=== PATIENT | female | born 1940 | race Caucasian/White ===

== ENCOUNTER → 2018-11-03 12:57 | Outpatient (CLI) | payer MEDICARE, SELFPAY ==
[2018-11-03 15:53] LABS: Absolute Neutrophil Count 3.8 X10^3/uL (2.0-7.7); Basophil# 0.04 X10^3/uL; Basophil% 0.6 % (0-1); Eosinophil# 0.13 X10^3/uL; Eosinophils% 1.9 % (0-5); Hematocrit 47.3 % (37-47); Hemoglobin 14.9 g/dl (12.0-15.0); Lymphocyte % 31.4 % (19-41); Mean Corp Hgb Conc 31.5 g/gl (32-36); Mean Corpuscular Hgb 27.7 pg (27.0-32.0); Mean Corpuscular Volume 88.1 fL (81-99); Mean Platelet Vol. 10.5 fl (6.2-12.0); Monocyte# 0.57 X10^3/uL; Monocyte% 8.5 % (0-10); Neutrophil # 3.82 X10^3/uL (2.7-7.7); Neutrophil % 57.3 % (47-70); Platelet Count 318 K/mm3 (150-450); RBC Distribution Width CV 22.7 % (11.6-14.6); Red Blood Count 5.37 M/mm3 (4.2-5.4); White Blood Count 6.7 K/mm3 (4.4-11.0)
[2018-11-03 15:54] LABS: Differential Indicated SCAN CRITERIA MET; POSITIVE COUNT NO; POSITIVE DIFFERENTIAL NO; POSITIVE MORPHOLOGY YES
[2018-11-03 15:59] LABS: ALB/GLOB Ratio 1.5 RATIO (0.9-2.4); AST(SGOT) 20 U/L (15-37); Alanine Aminotransfer ALT/SGPT 31 U/L (13-56); Albumin, Serum 4.1 g/dL (3.2-5.0); Alkaline Phosphatase 65 U/L (45-117); Anion Gap 8 (5-15); BUN 28 mg/dL (7-18); BUN/Creat Ratio 35.5 RATIO (10-20); Chloride 105 mmol/L (98-107); Creatinine, Serum 0.79 mg/dL (0.55-1.02); EST Glomerular Filtration Rate 75 mL/min (>60); Est Glom Filt Rate - Afr Amer 91 mL/min (>60); Ferritin 25 ng/mL (8-252); Globulin 2.8 g/dL (2.2-4.2); Glucose 93 mg/dL (74-106); Iron 188 ug/dL (50-170); Lipase 189 U/L (73-393); Potassium 4.1 mmol/L (3.5-5.1); Protein, Total 6.9 g/dL (6.4-8.2); Sodium Level 138 mmol/L (136-145); Thyroid Stim Hormone (TSH) 1.78 uIU/mL (0.358-3.74); Vitamin B12 377 pg/mL (211-911)
[2018-11-03 16:38] LABS: Anisocytosis 1+; Differential Comment SCANNED
== END ==
PROVIDERS: Family Provider Family Medicine; PCP Family Medicine; Visit Provider Family Medicine
DX: D50.9 Iron deficiency anemia, unspecified (principal); R10.9 Unspecified abdominal pain; E87.1 Hypo-osmolality and hyponatremia; L65.9 Nonscarring hair loss, unspecified; R53.83 Other fatigue
CPT/HCPCS: 36415; 80053; 82607; 82728; 83540; 83690; 84443; 85025

== ENCOUNTER → 2018-11-18 13:23 | Outpatient (CLI) | payer MEDICARE, SELFPAY ==
--- NOTE | 2018-11-18 13:28 | BI_ITS ---
MAMMOGRAPHY - BILATERAL SCREENING REASON FOR EXAM: Female, 77 years old. Routine annual screening examination. PERTINENT HISTORY: Non-contributory. TECHNIQUE: Digital bilateral breast walter (3D mammographic acquisition) in the CC and MLO projections. 2-D mediolateral oblique (MLO) and craniocaudad (CC) views of both breasts were obtained. CAD: Full Field Digital Mammography with Computer Added Detection was performed. COMPARISON: Comparison is made with prior examination dated October 06, 2017 and September 23, 2016. FINDINGS: Breast Composition: There are scattered areas of fibroglandular density. There are no dominant masses or suspicious calcifications. Stable benign-appearing bilateral axillary lymph nodes. No other significant abnormalities are identified. There has been no significant change since the prior study. BI/SCREENING MAMM (CAD), BILAT IMPRESSION: Stable bilateral screening mammogram. Yearly follow-up mammogram recommended. (A) ASSESSMENT CATEGORY: BIRADS Category 2: Benign. A letter regarding these results will be sent to the patient by the facility within 30 days. Approximately 10% of breast cancers are not detected by mammography. A normal mammogram should not delay biopsy of a clinically suspicious abnormality. [id number] Electronically Signed: Félix Ballesteros MD at 15:03 EST , Service support ,
--- OUTSIDE RECORDS SUMMARY | 2019-01-20 12:28 | XMS RPT_ITS ---
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 Active [facility] deficiency anemia, Community unspecified / Hospital D50.9(ICD-10) Repository 11/03/2018 Unknown R10.9 - Jose Leroy Active [facility] Unspecified Community abdominal pain / Hospital R10.9(ICD-10) Repository 11/03/2018 Unknown E87.1 - Jose Leroy Active [facility] Hypo-osmolality Community and hyponatremia / Hospital E87.1(ICD-10) Repository 11/03/2018 Unknown L65.9 - Jose Leroy Active [facility] Nonscarring hair Community loss, unspecified Hospital / L65.9(ICD-10) Repository 11/03/2018 Unknown R53.83 - Other RadJose Active [facility] fatigue / Community R53.83(ICD-10) Hospital Repository PROCEDURES PROCEDURES No Procedure Records FoundRESULTS RESULTS SCREENING MAMM (CAD), Observed: 11/18/2018 Status: F Source: [facility] BILAT 1:29 PM [facility] REPOSITORY [facility] Imaging Services [address] [place] [address] SCREENING MAMM (CAD), BILAT MR#: [id number] Acct: [id number] Name: LINDEN LANDRY Rep #: [id number] : 1940 F 77 From: Félix Ballesteros MD PCP: Jose Leroy DO Status: REG CLI Study: SCREENING MAMM (CAD), BILAT Date of Exam: 11/18/18 Exam# [id number] Ordering Dr: Jose Leroy DO MAMMOGRAPHY - BILATERAL SCREENING REASON FOR EXAM: Female, 77 years old. Routine annual screening examination. PERTINENT HISTORY: Non-contributory. TECHNIQUE: Digital bilateral breast walter (3D mammographic acquisition) in the CC and MLO projections. 2-D mediolateral oblique (MLO) and craniocaudad (CC) views of both breasts were obtained. CAD: Full Field Digital Mammography with Computer Added Detection was performed. COMPARISON: Comparison is made with prior examination dated October 06, 2017 and September 23, 2016. FINDINGS: Breast Composition: There are scattered areas of fibroglandular density. There are no dominant masses or suspicious calcifications. Stable benign-appearing bilateral axillary lymph nodes. No other significant abnormalities are identified. There has been no significant change since the prior study. BI/SCREENING MAMM (CAD), BILAT IMPRESSION: Stable bilateral screening mammogram. Yearly follow-up mammogram recommended. (A) ASSESSMENT CATEGORY: BIRADS Category 2: Benign. A letter regarding these results will be sent to the patient by the facility within 30 days. Approximately 10% of breast cancers are not detected by mammography. A normal mammogram should not delay biopsy of a clinically suspicious abnormality. [id number] Electronically Signed: Félix Ballesteros MD at 15:03 EST , Service support , CC: Jose Leroy DO [employer] Operator: Signed CBC W/DIFF, AUTOMATED Collected: 11/03/2018 Status: F Source: [facility] 1:01 PM [facility] REPOSITORY TYPE CODE TESTS RESULT OUT OF RANGE REFERENCE UNITS LAB L100.1000 4.4-11.0 K/mm3 Normal WBC 6.7 LAB L100.1200 4.2-5.4 M/mm3 Normal RBC 5.37 LAB L100.1300 12.0-15.0 g/dl Normal HGB 14.9 LAB L100.1400 37-47 % High HCT 47.3 LAB L100.1500 81-99 fL Normal MCV 88.1 LAB L100.1600 27.0-32.0 pg Normal MCH 27.7 LAB L100.1700 32-36 g/gl Low MCHC 31.5 LAB L100.1810 11.6-14.6 % High RDW CV 22.7 LAB L100.1820 35.1-43.9 fl High RDW SD 71.0 LAB L100.1900 150-450 K/mm3 Normal PLT 318 LAB L100.2000 6.2-12.0 fl Normal MPV 10.5 LAB L100.2100 47-70 % Normal NEUT% 57.3 LAB L100.2200 19-41 % Normal LY% 31.4 LAB L100.2300 0-10 % Normal MONO% 8.5 LAB L100.2400 0-5 % Normal EO% 1.9 LAB L100.2500 0-1 % Normal BASO% 0.6 LAB L100.2550 0.0-0.9 % Normal IM GRAN % 0.300 Result Comment: IG% - Immature Granulocytes (promyelocytes, myelocytes and metamyelocytes) > 1% indicates that a LEFT SHIFT is Present. LAB L100.2620 2.0-7.7 X10 3/uL Normal Absolute Neut 3.8 LAB L100.2720 0.83-4.51 X10 3/ul Normal Absolute Lymph 2.10 LAB L100.4500 Normal SMEAR COMMENT SCANNED LAB L100.7300 Normal ANISO 1+ Performed By: #### L100.0100 #### [facility] [place], [address] COMPREHENSIVE METABOLIC Collected: 11/03/2018 Status: F Source: [place] M[place] 1:01 PM [facility] REPOSITORY TYPE CODE TESTS RESULT OUT OF RANGE REFERENCE UNITS LAB L501.0100 74-106 mg/dL Normal GLU 93 Result Comment: Please note revised GLUCOSE reference range effective 2017. LAB L501.1000 7-18 mg/dL High BUN 28 LAB L501.1100 0.55-1.02 mg/dL Normal CREAT,SERUM 0.79 Result Comment: The validity of the calculated GFR AND GFRAA in patients over 70 years has not been determined. Clinical correlation is essential. LAB L501.1110 >60 mL/min Normal EST GFR 75 Result Comment: Non- GFR Calc LAB L501.1115 >60 mL/min Normal EST GFR - AA 91 Result Comment: GFR Calc LAB L501.1300 10-20 RATIO High BUN/CRE 35.5 LAB L501.1500 6.4-8.2 g/dL T Normal PROT 6.9 LAB L501.1800 3.2-5.0 g/dL Normal ALB 4.1 LAB L501.1950 2.2-4.2 g/dL Normal GLOB 2.8 LAB L501.2000 0.9-2.4 RATIO Normal A/G 1.5 LAB L501.2200 8.5-10.1 mg/dL CA Normal 9.0 LAB L501.4100 15-37 U/L Normal AST 20 LAB L501.4305 45-117 U/L Normal ALK P 65 LAB L501.4405 13-56 U/L Normal ALT 31 LAB L501.4600 0.20-1.00 mg/dL T Normal BILI 0.40 LAB L501.5300 136-145 mmol/L NA Normal 138 LAB L501.5600 3.5-5.1 mmol/L K Normal 4.1 LAB L501.5900 98-107 mmol/L CL Normal 105 LAB L501.6100 21.0-32.0 mmol/L Normal CO2 25.0 LAB L501.6200 5-15 Normal GAP 8 Performed By: #### L500.4050, L501.2450, L501.9520, L503.6150, L503.6550 #### [facility] [address] [place], [address] LIPASE Collected: 11/03/2018 Status: F Source: [facility] 1:01 [facility] REPOSITORY TYPE CODE TESTS RESULT OUT OF RANGE REFERENCE UNITS LAB L501.2450 73-393 U/L Normal LIPASE 189 Performed By: #### L500.4050, L501.2450, L501.9520, L503.6150, L503.6550 #### [facility] [address] [place], [address] THYROID STIM HORMONE Collected: 11/03/2018 Status: F Source: CANONES (TSH) 1:01 [facility] REPOSITORY TYPE CODE TESTS RESULT OUT OF RANGE REFERENCE UNITS LAB L501.9520 0.358-3.74 uIU/mL Normal TSH 1.78 Performed By: #### L500.4050, L501.2450, L501.9520, L503.6150, L503.6550 #### [facility] [address] [place], [address] IRON Collected: 11/03/2018 Status: F Source: CANONES 1:01 [facility] REPOSITORY TYPE CODE TESTS RESULT OUT OF RANGE REFERENCE UNITS LAB L503.6150 50-170 ug/dL High IRON 188 Performed By: #### L500.4050, L501.2450, L501.9520, L503.6150, L503.6550 #### [facility] [address] [facility] [place], [address] FERRITIN Collected: 11/03/2018 Status: F Source: CANONES 1:01 [facility] REPOSITORY TYPE CODE TESTS RESULT OUT OF RANGE REFERENCE UNITS LAB L503.6550 8-252 ng/mL Normal FERRITIN 25 Performed By: #### L500.4050, L501.2450, L501.9520, L503.6150, L503.6550 #### [facility] [address] [facility] [place], [address] VITAMIN B12 Collected: 11/03/2018 Status: F Source: CANONES 1:01 [facility] REPOSITORY TYPE CODE TESTS RESULT OUT OF RANGE REFERENCE UNITS LAB L503.0105 211-911 pg/mL Normal Vitamin B12 377 Performed By: #### L503.0105 #### [facility] [address] [place], [address] ALLERGIES ALLERGIES No Allergies Records FoundENCOUNTERS ENCOUNTERS ADMIT/DISCHARGE ACCOUNT ADMITTING ENCOUNTER LOCATION SOURCE NUMBER CLASS 11/18/2018 [id number] [facility] ing:OPBI Repository 11/03/2018 [id number] Ambulatory [facility] 0 [facility] ing:BFHLAB Repository PAYERS PAYERS ENCOUNTER GUARANTOR PAYER SUBSCRIBER SOURCE 11/18/2018 LINDEN Aguilera Primary Insurance:MMO LINDEN BELLAMY [place] MEDICAREPolicy ROSEDOB: [facility], [facility]: [id number] [address] [id number] Repository Date:7846-11-52VS BOX ([place]) [address] [place] [phone]: 11/18/2018 Secondary NOT GIVENUNK [facility] Insurance:SELF PAY [facility] Number: Effective Repository Date:2018-09-28 11/03/2018 Lidnen Zepeda9 Primary Insurance:MMO Linden HuttonB: [id number] Number: [facility] [id number]: 330 [id number] Repository [phone] (DS) Date:[id number] [address] [place] [phone]: 11/03/2018 Secondary NOT GIVENUNK [facility] Insurance:SELF PAY [facility] Number: Effective Repository Date:2018-11-03
== END ==
PROVIDERS: Family Provider Family Medicine; PCP Family Medicine; Referring Provider Family Medicine; Visit Provider Family Medicine
DX: Z12.31 Encounter for screening mammogram for malignant neoplasm of breast (principal)
CPT/HCPCS: 77063; 77067

== ENCOUNTER → 2019-03-30 09:54 | Outpatient (CLI) | payer MEDICARE, SELFPAY ==
--- NOTE | 2019-03-30 09:55 | US_ITS ---
STUDY: THYROID ULTRASOUND REASON FOR EXAM: Female, 78 years old. Globus sensation. Hoarseness. Family history of thyroid cancer. TECHNIQUE: Ultrasound evaluation of the thyroid was performed with real-time and static robles-scale imaging. COMPARISON: None. FINDINGS: RIGHT LOBE: The right lobe of the thyroid gland measures 4.4 x 1.3 x 1.0 cm. There is a heterogeneous echotexture. Lower pole solid nodule measuring 0.6 x 0.5 x 0.4 cm LEFT LOBE: The left lobe of the thyroid gland measures 4.6 x 1.1 x 2.0 cm. There is a heterogeneous echotexture. Midpole solid nodule measuring 0.6 x 0.6 x 0.5 cm ISTHMUS: The isthmus measures 5 mm which is mildly enlarged. . The regional lymph nodes are normal. US/Thyroid IMPRESSION: Borderline thyroid gland enlargement. Single bilateral subcentimeter solid nodules. Electronically Signed: Ayush Daniels MD at 3:06 EDT , Service support ,
== END ==
PROVIDERS: Family Provider Family Medicine; PCP Family Medicine; Referring Provider Family Medicine; Visit Provider Family Medicine
DX: E04.2 Nontoxic multinodular goiter (principal); R09.89 Other specified symptoms and signs involving the circulatory and respiratory systems; R59.0 Localized enlarged lymph nodes
CPT/HCPCS: 76536

== ENCOUNTER → 2019-04-26 14:50 | Outpatient (CLI) | payer MEDICARE, SELFPAY ==
[2019-04-26 18:17] LABS: Free T3 2.4 pg/mL (2.18-3.98); T4 Free Direct 1.13 ng/dL (0.76-1.46); Thyroid Stim Hormone (TSH) 1.14 uIU/mL (0.358-3.74)
[2019-04-30 17:04] LABS: ANTINUCLEAR ANTIBODIES DIRECT Negative (Negative)
[2019-05-01 04:06] LABS: Thyroid Peroxidase AB 15 IU/mL (0-34)
[2019-05-02 16:21] LABS: T3 Reverse 26.6 ng/dL (9.2-24.1); Thyroglobulin Antibody 16.7 IU/mL (0.0-0.9)
== END ==
PROVIDERS: Family Provider Family Medicine; PCP Family Medicine; Visit Provider Family Medicine
DX: E01.0 Iodine-deficiency related diffuse (endemic) goiter (principal); H04.123 Dry eye syndrome of bilateral lacrimal glands
CPT/HCPCS: 36415; 84439; 84443; 84481; 84482; 86038; 86225; 86235; 86376; 86800

== ENCOUNTER → 2019-05-24 10:37 | Outpatient (CLI) | payer MEDICARE, SELFPAY ==
[2019-05-24 12:23] LABS: Absolute Neutrophil Count 16.6 X10^3/uL (2.0-7.7); Basophil# 0.02 X10^3/uL; Basophil% 0.1 % (0-1); Hematocrit 50.3 % (37-47); Hemoglobin 17.1 g/dL (12.0-15.0); Lymphocyte % 6.2 % (19-41); Mean Corpuscular Hgb 31.4 pg (27.0-32.0); Mean Corpuscular Volume 92.3 fL (81-99); Mean Platelet Vol. 10.1 fl (6.2-12.0); Monocyte# 1.17 X10^3/uL; Monocyte% 6.1 % (0-10); NRBC Flagged by Analyzer 0 % (0-5); Neutrophil # 16.61 X10^3/uL (2.7-7.7); Neutrophil % 86.5 % (47-70); Platelet Count 377 K/mm3 (150-450); RBC Distribution Width CV 13.6 % (11.6-14.6); Red Blood Count 5.45 M/mm3 (4.2-5.4); White Blood Count 19.2 K/mm3 (4.4-11.0)
[2019-05-24 12:28] LABS: ALB/GLOB Ratio 1.2 RATIO (0.9-2.4); AST(SGOT) 45 U/L (15-37); Alanine Aminotransfer ALT/SGPT 79 U/L (13-56); Albumin, Serum 3.8 g/dL (3.2-5.0); Alkaline Phosphatase 59 U/L (45-117); Anion Gap 14 (5-15); BUN 24 mg/dL (7-18); BUN/Creat Ratio 30.3 RATIO (10-20); Calcium,Total 9.6 mg/dL (8.5-10.1); Chloride 102 mmol/L (98-107); Creatinine, Serum 0.79 mg/dL (0.55-1.02); EST Glomerular Filtration Rate 74 mL/min (>60); Est Glom Filt Rate - Afr Amer 90 mL/min (>60); Globulin 3.2 g/dL (2.2-4.2); Glucose 192 mg/dL (74-106); Lipase 70 U/L (73-393); Potassium 3.7 mmol/L (3.5-5.1); Sodium Level 140 mmol/L (136-145)
== END ==
PROVIDERS: Family Provider Family Medicine; PCP Family Medicine; Visit Provider Family Medicine
DX: R10.13 Epigastric pain (principal)
CPT/HCPCS: 36415; 80053; 83690; 85025

== ENCOUNTER 2019-05-24 13:33 | Inpatient (IN) | payer MEDICARE, SELFPAY ==
[2019-05-24 13:34] VITALS: BP 100/75; PULSE 114; RESP 16; TEMP 36.8; O2SAT 96; BMI 26.0
--- NOTE | 2019-05-24 14:01 | CT_ITS ---
STUDY: CT ABDOMEN AND PELVIS WITH CONTRAST REASON FOR EXAM: Female, 78 years old. Upper abdominal pain. RADIATION DOSAGE (If Supplied By Facility): CTDIvol = ( 13.89 ) mGy, DLP = ( 835.82 ) mGycm TECHNIQUE: Transaxial images were obtained from the dome of the diaphragm to the symphysis pubis with oral contrast. 100ml IV/Oral Isovue 300 was administered. Sagittal and coronal images were reconstructed. Individualized dose optimization techniques were used for this CT. COMPARISON: None. FINDINGS: Increased linear markings at the lung bases slightly more prominent on the left side suggests some bibasilar scarring. The visualized portions of the heart are within normal limits. There is decreased attenuation of the liver consistent with steatosis. There are surgical clips in the gallbladder fossa consistent with a prior cholecystectomy. Normal spleen. Normal pancreas. Normal bilateral adrenal glands. Normal right kidney. Normal left kidney. There is a moderate hiatal hernia. There are dilated loops of the small intestine with a non-distended colon consistent with a small bowel obstruction. The transition point is in the distal ileum. There are multiple colonic diverticula consistent with diverticulosis. There are surgical clips in the region of the appendix consistent with a prior appendectomy. Normal abdominal aorta. Normal inferior vena cava. Normal retroperitoneum. Normal urinary bladder. There is absence of the uterus consistent with a prior hysterectomy. Small amount of free fluid is seen in the cul-de-sac. There is a 2.5 cm x 2 cm cyst in the right ovary. There is a small umbilical hernia containing fat. Grade 1 anterior listhesis of L4 on L5 with disc space narrowing at the L4-L5 level. CT/Abdomen/Pelvis WITH Contrast IMPRESSION: Findings indicative of small bowel obstruction with the transition zone in the distal ileum. Small amount of free fluid in the cul-de-sac. Sigmoid diverticulosis. Electronically Signed: Félix Ballesteros, at 16:04 EDT , Service support ,
[2019-05-24] MEDS: Ondansetron 4 MG/2 ML Vial IV (14:12)
[2019-05-24] MEDS: 0.9% Normal Saline 1,000 ML 1000 ML IV (14:12)
[2019-05-24] MEDS: fentaNYL 100 MCG/2 ML Ampul 25 MCG IV (14:13)
[2019-05-24 14:27] LABS: International Normalized Ratio 1.1
[2019-05-24 14:28] LABS: Partial Thromboplast Time 22.8 Seconds (24.1-36.2)
[2019-05-24 14:46] LABS: Lactic Acid 2.4 mmol/L (0.4-2.0)
[2019-05-24 15:34] VITALS: BP 138/73; PULSE 87; RESP 14; O2SAT 93
[2019-05-24 17:33] VITALS: BMI 25.2
[2019-05-24 17:38] VITALS: BMI 25.2
[2019-05-24 17:52] VITALS: BP 144/72; PULSE 76; RESP 17; TEMP 36.7; O2SAT 99
[2019-05-24] MEDS: 0.9% Normal Saline 1,000 ML 125 ML IV (17:59)
[2019-05-24 18:08] LABS: Reflex Lactate? Y
--- NOTE | 2019-05-24 18:45 | CON.PCM_ITS ---
Problem List (1) SBO (small bowel obstruction) Status: Acute Reason for Consult Date of Consultation: 05/24/19 Reason for Consultation: Small bowel obstruction History of Present Illness: The patient is a 78 year old F who presented to the hospital today with abdominal pain. She reports that the pain is been going on for 3 days. She says 2 days ago and yesterday she had vomiting. She has not vomited today. She says she has not passed any flatus in at least 3 days. She has not had any bowel movements. She says the pain is in her upper abdomen. Past Medical History Allergies mold Allergy (Verified 05/24/19 13:36) Unknown Home Medications: Ambulatory Orders Medication Instructions Recorded Aspirin E.C. [Ecotrin] 81 mg PO DAILY@0800 05/24/19 Ferrous Sulfate [Iron] 325 mg PO BID 05/24/19 Naproxen 500 mg PO BID PRN PRN 05/24/19 Omeprazole Magnesium [Prilosec Otc] 20 mg PO DAILY 05/24/19 traMADol [Ultram] 50 mg PO BID PRN PRN 05/24/19 Surgical History: appendectomy, cholecystectomy, hysterectomy Smoking Status: Never smoker - *Family History Maternal History Items: No pertinent history Review of Systems Constitutional: Denies: Anorexia, Chills, Fever HEENT: Denies: Difficulty Swallowing Cardiovascular: Denies: Chest Pain Respiratory: Denies: Cough, Shortness of Breath Gastrointestinal: Reports: Abdominal Pain, Nausea, Vomiting. Denies: Constipation, Diarrhea Genitourinary: Denies: Dysuria Skin: Denies: Jaundice Psychiatric: Denies: Depression Hematologic/ Lymphatic: Denies: Anemia Patient Problems: Active and Suspected Problems SBO (small bowel obstruction) (Acute) - Physical Exam General: Alert, Oriented x3, Cooperative HEENT: Atraumatic Lungs: Normal air movement Cardiovascular: Regular rate, Regular Rhythm Abdomen: Soft, Distended, Tender - Tender in the upper abdomen with no guarding or rebound Extremities: No clubbing Skin: No rashes Musculoskeletal: No Muscle Wasting Lymphatic: No Cervical, Supraclavicular, or Inguinal Adenopathy Neurological: Cranial nerves II-XII grossly intact Psych/Mental Status: Normal Affect Vital Signs Temp Pulse Resp BP Pulse Ox 98.0 F 76 17 144/72 H 99 05/24/19 17:52 05/24/19 17:52 05/24/19 17:52 05/24/19 17:52 05/24/19 17:52 Oxygen Delivery Method Room Air Weight: 125 lb Body Mass Index (BMI) 25.2 Laboratory Tests Past 24 Hrs 05/24/19 05/24/19 05/24/19 14:00 14:00 18:30 PT 14.0 INR 1.1 APTT 22.8 L Lactic Acid 2.4 H Pending Clinical Impression(s) from Imaging Studies Abdomen/Pelvis CT 05/24/19 14:01 IMPRESSION: Findings indicative of small bowel obstruction with the transition zone in the distal ileum. Small amount of free fluid in the cul-de-sac. Sigmoid diverticulosis. Electronically Signed: Félix Ballesteros, at 16:04 EDT , Service support , Assessment/Plan All Active Problems SBO (small bowel obstruction) (Acute) 78-year-old female small bowel obstruction 1. Patient reports that she had nausea and vomiting yesterday and the day before. CT scan shows a transition point in the left lower quadrant. It appears to be complete obstruction with no gas or stool in the distal small bowel or colon. The patient does have elevated white count but her abdominal exam is fairly benign with no guarding or rebound. 2. I will have the nurses place an NG tube tonight. Tomorrow morning I will obtain a KUB. If there is no improvement I will take her tomorrow for surgery. I explained this to her and she agrees. I also had the hospitalist service start Cipro and Flagyl for any translocation of gut bacteria. Ivan Palumbo MD Pager: [facility] [address] [place] [address], [address] [place] [address] Office:
--- NOTE | 2019-05-24 19:11 | ED.VISSUMM ---
- ER Visit Summary Date of Service: 05/24/19 Chief Complaint: Abdominal pain History of Present Illness: The patient is a 78 F who presents for epigastric pain. Symptoms started 3 days ago, when she woke up. They have waxed and waned, but her symptoms persisted today, so she saw her PCP. Her white count was 19 and her AST and ALT were 45 and 79, respectively. Lipase was normal. History of GERD, hiatal hernia, appendectomy, cholecystectomy, and tubal ligation. Reports nausea and decreased PO intake. Denies any other GI symptoms or symptoms. Denies fever. Physical Examination: HR 114, otherwise vitals normal. Heart regular. Lungs clear. Abdomen tender in the epigastric region. Skin normal. Alert and oriented. No acute distress. Test Results: CBC, CMP, and lipase were not repeated. PT and PTT unremarkable. Lactate was 2.4. CT showed SBO with transition point in the distal ileum. Acute hepatitis panel is pending. Emergency Department Course and Treatment: Treated with IV fluids, zofran, and fentanyl while awaiting results. Patient stable on reevaluation and discussion of her findings. Results were discussed with Dr. Palumbo and Dr. Smith. Dr. Smith will admit for further care. Treatment Plan: As above Disposition: Admit Impression: 1. Small bowel obstruction. This note was generated with [employer] dictation software. It may contain incorrect words, spelling, and punctuation that were not noted in review of the chart prior to signing ED Disposition - Plan for ED Patient: Disposition: Acute Care [facility]
[2019-05-24] MEDS: metroNIDAZOLE 500 MG/100 ML BAG 100 MG IV (19:12)
[2019-05-24 19:15] LABS: Lactic Acid 1.5 mmol/L (0.4-2.0)
[2019-05-24] MEDS: Ciprofloxacin 400 MG/200 ML BAG 200 MG IV (20:35)
[2019-05-24 21:35] VITALS: PULSE 88; RESP 16
[2019-05-24] MEDS: Oxymetazoline 0.05% 1 SPRAY SPRAY.BTL 2 SPRAY NASAL (21:43)
[2019-05-24] MEDS: Lidocaine 4% 5 ML Ampul 2 ML INHALATION (21:46)
[2019-05-24 21:56] VITALS: BP 99/54; PULSE 94; RESP 17; TEMP 37.3; O2SAT 95
--- NOTE | 2019-05-24 22:25 | RAD_ITS ---
STUDY: X-RAY - ABDOMEN/PELVIS REASON FOR EXAM: Female, 78 years old. NG tube placement. TECHNIQUE: Supine views were obtained. COMPARISON: None. FINDINGS: Nasogastric tube is coiled in the distal esophagus. Multiple dilated loops of small bowel are consistent with with small bowel obstruction. There is mild retained oral contrast in the colon from earlier CT scan. RAD/Abdomen Single View (Portable) IMPRESSION: 1. NG tube tip is coiled in the distal esophagus. This should be removed and replaced. 2. Small bowel obstruction. Oral contrast demonstrates passage into the colon since the earlier CT scan consistent with incomplete obstruction. Electronically Signed: Anisa Gayle MD at 23:56 EDT Tel , Service support ,
[2019-05-25] MEDS: 0.9% NaCl Peripheral Flush Adult/Peds IV (00:50)
--- NOTE | 2019-05-25 01:35 | RAD_ITS ---
HISTORY: NG tube placement. Single view of the lower chest and upper abdomen. Comparison study is a CT scan of the abdomen and pelvis from May 24, 2019. Findings: Esophagogastric tube is coiled within the posterior mediastinum within the hiatal hernia. Heart is not enlarged. Lungs are clear. Gaseous distention of many loops of small bowel persist. No free air is perceived. RAD/Abdomen Single View (Portable) IMPRESSION: Coiling of esophagogastric tube within the stomach within the posterior mediastinum. 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 at 0235 Reported and signed by: Amauri Day MD Electronically Signed: Amauri Day MD at 2:34 EDT Tel , Service support ,
[2019-05-25] MEDS: Lidocaine 4% 5 ML Ampul 2 ML INHALATION (02:24)
[2019-05-25] MEDS: 0.9% Normal Saline 1,000 ML 125 ML IV ×3 (03:20→20:30)
[2019-05-25 03:55] VITALS: BP 107/50; PULSE 59; RESP 16; TEMP 36.5; O2SAT 99
[2019-05-25] MEDS: metroNIDAZOLE 500 MG/100 ML BAG 100 MG IV ×3 (05:08→21:56)
--- NOTE | 2019-05-25 05:55 | RAD_ITS ---
HISTORY: Small bowel obstruction. NG tube placement. 3 images. A chest x-ray in 2 images of the abdomen. CT scan of the abdomen and pelvis was performed yesterday afternoon prior to the placement of the NG tube. That study demonstrated a moderate to large hiatal hernia. Findings: The esophagogastric tube is coiled at the gastroesophageal junction within the thorax, likely within the stomach that is herniated into the chest. Bowel gas pattern continues to demonstrate gaseous distention of bowel. CT density contrast is present within the colon, indicative of absence of a complete bowel obstruction. No free air is perceived. No pneumatosis is identified. Excreting intravascular contrast is present within the urinary bladder. Hip arthritis. Calcific plaque within the aortic arch. Left shoulder arthroplasty. RAD/Abdomen Single View (Portable) IMPRESSION: Esophagogastric tube is coiled within the posterior mediastinum, from comparison to the CT scan of the abdomen, performed earlier yesterday afternoon, the coiling of the catheter is within the stomach, but within the stomach that is herniated into the posterior mediastinum has a moderate-sized hiatal hernia. at 0214 Reported and signed by: Amauri Day MD Electronically Signed: Amauri Day MD at 2:13 EDT Tel , Service support ,
[2019-05-25 06:55] LABS: Absolute Lymphocyte Count 1.67 X10^3/uL (0.83-4.51); Absolute Neutrophil Count 7.2 X10^3/uL (2.0-7.7); Basophil# 0.03 X10^3/uL; Basophil% 0.3 % (0-1); Eosinophil# 0.01 X10^3/uL; Eosinophils% 0.1 % (0-5); Hematocrit 41.4 % (37-47); Hemoglobin 13.6 g/dL (12.0-15.0); Lymphocyte # 1.67 X10^3/ul (4.0); Lymphocyte % 16.8 % (19-41); Mean Corp Hgb Conc 32.9 g/dL (32-36); Mean Corpuscular Hgb 30.4 pg (27.0-32.0); Mean Corpuscular Volume 92.4 fL (81-99); Mean Platelet Vol. 9.5 fl (6.2-12.0); Monocyte# 0.93 X10^3/uL; Monocyte% 9.4 % (0-10); NRBC Flagged by Analyzer 0 % (0-5); Neutrophil % 72.6 % (47-70); Platelet Count 242 K/mm3 (150-450); RBC Distribution Width CV 13.5 % (11.6-14.6); Red Blood Count 4.48 M/mm3 (4.2-5.4); White Blood Count 9.9 K/mm3 (4.4-11.0)
[2019-05-25 07:28] LABS: Anion Gap 8 (5-15); BUN 13 mg/dL (7-18); BUN/Creat Ratio 25.8 RATIO (10-20); Calcium,Total 7.9 mg/dL (8.5-10.1); Chloride 109 mmol/L (98-107); EST Glomerular Filtration Rate 126 mL/min (>60); Est Glom Filt Rate - Afr Amer 152 mL/min (>60); Glucose 119 mg/dL (74-106); Potassium 3.4 mmol/L (3.5-5.1); Sodium Level 143 mmol/L (136-145)
--- NOTE | 2019-05-25 08:44 | PCM.PN.SRG ---
Patient Problems: Active and Suspected Problems SBO (small bowel obstruction) (Acute) Subjective: Patient reports she is passing flatus now. She does not have any nausea or vomiting overnight. Several attempts were tried to place NG tube but were unsuccessful due to the patient's hiatal hernia. She reports no abdominal pain this morning. - Physical Exam General: Alert, Oriented x3 Lungs: Normal air movement Cardiovascular: Regular rate, Regular Rhythm Abdomen: Soft, Non Tender, Distended Vital Signs Temp Pulse Resp BP Pulse Ox 97.7 F L 59 L 16 107/50 L 99 05/25/19 03:55 05/25/19 03:55 05/25/19 03:55 05/25/19 03:55 05/25/19 03:55 Oxygen Delivery Method Room Air Weight: 125 lb Body Mass Index (BMI) 25.2 Intake and Output for Last 24 Hours 05/23/19 05/24/19 05/25/19 23:59 23:59 23:59 Intake Total 957 / 957 620 / 620 Balance 957 / 957 620 / 620 Laboratory Tests Past 24 Hrs 05/24/19 05/24/19 05/24/19 14:00 14:00 18:30 WBC RBC Hgb Hct MCV MCH MCHC RDW Std Deviation RDW Coeff of Nick Plt Count MPV Immature Gran % (Auto) Neut % (Auto) Lymph % (Auto) [place] % (Auto) Eos % (Auto) Baso % (Auto) Absolute Neuts (auto) Absolute Lymphs (auto) Nucleated RBC % PT 14.0 INR 1.1 APTT 22.8 L Sodium Potassium Chloride Carbon Dioxide Anion Gap BUN Creatinine Estim Creat Clear Calc Est GFR (MDRD) Af Amer Est GFR (MDRD) Non-Af BUN/Creatinine Ratio Glucose Lactic Acid 2.4 H 1.5 Calcium 05/25/19 05/25/19 06:33 06:33 WBC 9.9 RBC 4.48 Hgb 13.6 Hct 41.4 MCV 92.4 MCH 30.4 MCHC 32.9 RDW Std Deviation 46.0 H RDW Coeff of Nick 13.5 Plt Count 242 MPV 9.5 Immature Gran % (Auto) 0.800 Neut % (Auto) 72.6 H Lymph % (Auto) 16.8 L [place] % (Auto) 9.4 Eos % (Auto) 0.1 Baso % (Auto) 0.3 Absolute Neuts (auto) 7.2 Absolute Lymphs (auto) 1.67 Nucleated RBC % 0 PT INR APTT Sodium 143 Potassium 3.4 L Chloride 109 H Carbon Dioxide 26.0 Anion Gap 8 BUN 13 Creatinine 0.50 L Estim Creat Clear Calc 41.50 Est GFR (MDRD) Af Amer 152 Est GFR (MDRD) Non-Af 126 BUN/Creatinine Ratio 25.8 H Glucose 119 H Lactic Acid Calcium 7.9 L Medical Necessity - Tobacco Use Smoking Status: Never smoker Assessment/Plan All Active Problems SBO (small bowel obstruction) (Acute) 78-year-old female with small bowel obstruction 1. Patient's contrast on her CT is now in the colon. She still has markedly dilated small bowel loops. She is not having any nausea vomiting or abdominal pain and her white count has returned to normal. I recommend continuing to observe today. I will repeat KUB in the morning. If there is no progression I can always take her to surgery tomorrow. Today she would agree in observation as her pain is gone and she is starting to pass gas. If there is progression I will start a diet tomorrow. Today there is still too many dilated small bowel loops. Ivan Palumbo MD Pager: [facility] [address] [place] [address], [address] [place] [address] Office:
[2019-05-25 09:09] LABS: Magnesium 1.9 mg/dL (1.6-2.6); Phosphorus 2.1 mg/dL (2.5-4.9); Thyroid Stim Hormone (TSH) 0.99 uIU/mL (0.358-3.74)
--- NOTE | 2019-05-25 09:50 | CASEMGMT ---
RN CM Note Presentation: SBO Intro role of CM to patient in room. She is awake, alert and able to participate in assessment. Demographics, PCP and Pharmacy verified. PCP: Dr. Jose Leroy. Pt states she is able to f/u with physicians on discharge. Specialist: Dr. Kay Pharmacy: [facility] Prescription Coverage: yes Living arrangements/DME: Lives independently. No assist needed with ADL's. States she does not use or have DME equipment. If any assist is needed on dc, pt states her son and daughter in law live nearby and can assist. Pt DC Goal: Home DC Plan: Home Virgil KELLY RN ACM
[2019-05-25 09:55] VITALS: BP 102/53; PULSE 64; RESP 16; TEMP 36.9; O2SAT 98
[2019-05-25] MEDS: Ciprofloxacin 400 MG/200 ML BAG 200 MG IV ×2 (10:42→23:11)
[2019-05-25] MEDS: Potassium Chloride 10mEq/100mL 10 MEQ/100 ML IV.SOLN. 100 MEQ IV BOLUS ×4 (11:36→15:19)
--- NOTE | 2019-05-25 12:25 | PCM.PROGNOTE ---
<Christopher Donnelly - Last Filed: 05/25/19 12:25> Patient Problems: Active and Suspected Problems SBO (small bowel obstruction) (Acute) Subjective: Denies any nausea/vomiting/abdominal pain. States she had another BM that was small and soft last night after admission. She wants to eat. NG failed as it went into the hiatal hernia. Currently + flatus. No fever/chills. - Physical Exam General: Alert, Oriented x3, Cooperative HEENT: Atraumatic, PERRLA, EOMI, Normocephalic Neck: Supple, No JVD, Negative Carotid Bruits Lungs: Clear to auscultation, Normal air movement Cardiovascular: Regular rate, No murmurs Abdomen: Bowel Sounds Present, Soft, Non Tender Extremities: No edema, Capillary Refill Less than 3 Seconds Skin: No rashes, No breakdown Musculoskeletal: No Tenderness to Palpation of Joints or Extremities Neurological: Cranial nerves II-XII grossly intact Psych/Mental Status: Normal Affect, Appropriate, Alert and oriented to time, place, person, mood and affect Vital Signs Temp Pulse Resp BP Pulse Ox 98.4 F 64 16 102/53 L 98 05/25/19 09:55 05/25/19 09:55 05/25/19 09:55 05/25/19 09:55 05/25/19 09:55 Oxygen Delivery Method Room Air Weight: 124 lb 12.506 oz Body Mass Index (BMI) 25.2 Intake and Output for Last 24 Hours 05/23/19 05/24/19 05/25/19 23:59 23:59 23:59 Intake Total 957 / 957 620 / 620 Balance 957 / 957 620 / 620 Laboratory Tests Past 24 Hrs 05/24/19 05/24/19 05/24/19 14:00 14:00 18:30 WBC RBC Hgb Hct MCV MCH MCHC RDW Std Deviation RDW Coeff of Nick Plt Count MPV Immature Gran % (Auto) Neut % (Auto) Lymph % (Auto) [place] % (Auto) Eos % (Auto) Baso % (Auto) Absolute Neuts (auto) Absolute Lymphs (auto) Nucleated RBC % PT 14.0 INR 1.1 APTT 22.8 L Sodium Potassium Chloride Carbon Dioxide Anion Gap BUN Creatinine Estim Creat Clear Calc Est GFR (MDRD) Af Amer Est GFR (MDRD) Non-Af BUN/Creatinine Ratio Glucose Lactic Acid 2.4 H 1.5 Calcium Phosphorus Magnesium TSH 05/25/19 05/25/19 05/25/19 06:33 06:33 06:33 WBC 9.9 RBC 4.48 Hgb 13.6 Hct 41.4 MCV 92.4 MCH 30.4 MCHC 32.9 RDW Std Deviation 46.0 H RDW Coeff of Nick 13.5 Plt Count 242 MPV 9.5 Immature Gran % (Auto) 0.800 Neut % (Auto) 72.6 H Lymph % (Auto) 16.8 L [place] % (Auto) 9.4 Eos % (Auto) 0.1 Baso % (Auto) 0.3 Absolute Neuts (auto) 7.2 Absolute Lymphs (auto) 1.67 Nucleated RBC % 0 PT INR APTT Sodium 143 Potassium 3.4 L Chloride 109 H Carbon Dioxide 26.0 Anion Gap 8 BUN 13 Creatinine 0.50 L Estim Creat Clear Calc 41.50 Est GFR (MDRD) Af Amer 152 Est GFR (MDRD) Non-Af 126 BUN/Creatinine Ratio 25.8 H Glucose 119 H Lactic Acid Calcium 7.9 L Phosphorus 2.1 L Magnesium 1.9 TSH 0.99 Medical Necessity - Tobacco Use Smoking Status: Never smoker Assessment/Plan All Active Problems SBO (small bowel obstruction) (Acute) 1. SBO - multiple prior abdominal surgeries. + BMs last night. + flatus. No abd pain, tenderness, N/V today. Dr. Palumbo following. NG failed but she appears to be doing fine without it. Cipro/Flagyl per surgery. 2. Hx GERD/Hiatal hernia - continue IV PPI 3. Hashimotos dz - TSH normal 4. Low K, Mag - replete 5. Osteoarthritis - pain controlled DVT ppx: SCDs DC planning: advance diet per gen surgery This patient was seen by Christopher Donnelly PA-C under the supervision of Doctor Prudencio. <Tyler Flannery - Last Filed: 05/25/19 12:53> - Physical Exam Vital Signs Temp Pulse Resp BP Pulse Ox 98.4 F 64 16 102/53 L 98 05/25/19 09:55 05/25/19 09:55 05/25/19 09:55 05/25/19 09:55 05/25/19 09:55 Oxygen Delivery Method Room Air Weight: 56.6 kg Body Mass Index (BMI) 25.2 Intake and Output for Last 24 Hours 05/23/19 05/24/19 05/25/19 23:59 23:59 23:59 Intake Total 957 / 957 620 / 620 Balance 957 / 957 620 / 620 Laboratory Tests Past 24 Hrs 05/24/19 05/24/19 05/24/19 14:00 14:00 18:30 WBC RBC Hgb Hct MCV MCH MCHC RDW Std Deviation RDW Coeff of Nick Plt Count MPV Immature Gran % (Auto) Neut % (Auto) Lymph % (Auto) [place] % (Auto) Eos % (Auto) Baso % (Auto) Absolute Neuts (auto) Absolute Lymphs (auto) Nucleated RBC % PT 14.0 INR 1.1 APTT 22.8 L Sodium Potassium Chloride Carbon Dioxide Anion Gap BUN Creatinine Estim Creat Clear Calc Est GFR (MDRD) Af Amer Est GFR (MDRD) Non-Af BUN/Creatinine Ratio Glucose Lactic Acid 2.4 H 1.5 Calcium Phosphorus Magnesium TSH 05/25/19 05/25/19 05/25/19 06:33 06:33 06:33 WBC 9.9 RBC 4.48 Hgb 13.6 Hct 41.4 MCV 92.4 MCH 30.4 MCHC 32.9 RDW Std Deviation 46.0 H RDW Coeff of Nick 13.5 Plt Count 242 MPV 9.5 Immature Gran % (Auto) 0.800 Neut % (Auto) 72.6 H Lymph % (Auto) 16.8 L [place] % (Auto) 9.4 Eos % (Auto) 0.1 Baso % (Auto) 0.3 Absolute Neuts (auto) 7.2 Absolute Lymphs (auto) 1.67 Nucleated RBC % 0 PT INR APTT Sodium 143 Potassium 3.4 L Chloride 109 H Carbon Dioxide 26.0 Anion Gap 8 BUN 13 Creatinine 0.50 L Estim Creat Clear Calc 41.50 Est GFR (MDRD) Af Amer 152 Est GFR (MDRD) Non-Af 126 BUN/Creatinine Ratio 25.8 H Glucose 119 H Lactic Acid Calcium 7.9 L Phosphorus 2.1 L Magnesium 1.9 TSH 0.99 Assessment/Plan This patient was seen in conjunction with Christopher Medrano I have independently interviewed and examined the patient and reviewed pertinent historical, laboratory, and other data. Please refer to Christopher Donnelly PA-C note for details of this patient's presentation, findings, and recommendations. I have reviewed Christopher Donnelly PA-C note and concur with documented findings. In brief, patient is a 78-year-old lady with multiple abdominal surgeries including hysterectomy, appendectomy, cholecystectomy who presented with abdominal pain. Her assessment was consistent with small bowel obstruction admitted to regular nursing floor for further management Physical Examination: GENERAL: cooperative HEENT: Atraumatic; EYES; Anicteric, NECK; supple, normal thyroid, RESPIRATORY: Diminished to auscultation CARDIOVASCULAR: Regular S1 S2,s GI: soft, non-tender, normoactive bowel sounds, : No Renal angle tenderness; NEURO: Awake; no lateralizing signs. SKIN: No Rash PSYCH; Normal affect Assessment: 1. Small bowel obstruction suspected to be secondary to adhesions 2. Hiatal hernia with GERD 3. Hypomagnesemia 4. Hypokalemia 5. Generalized osteoarthritis Recommendations: 1. I have discussed the results of my overview and impressions with the patient 2. Options for management were reviewed Code Visit Inpatient E&M: 74091 Subs Hosp L3
[2019-05-25 16:51] VITALS: BP 109/69; PULSE 67; RESP 18; TEMP 36.6; O2SAT 97
[2019-05-25] MEDS: Calcium Carbonate 500 MG Tablet 1000 MG PO (18:05)
[2019-05-25 20:33] VITALS: BP 124/50; PULSE 60; RESP 18; TEMP 36.9; O2SAT 97
[2019-05-26 03:34] VITALS: BP 116/43; PULSE 61; RESP 16; TEMP 37; O2SAT 99
[2019-05-26] MEDS: metroNIDAZOLE 500 MG/100 ML BAG 100 MG IV ×3 (05:34→23:15)
--- NOTE | 2019-05-26 05:55 | RAD_ITS ---
HISTORY: Small bowel obstruction. Comparison chest x-ray is from yesterday morning. Comparison single view of the abdomen is from yesterday morning. Findings: Oral contrast, likely from the CT scan of May 24, 2019 is within the rectum and colon. There are abnormally dilated loops of small bowel within the abdomen. The most dilated of these is dilated to 3.8 cm in the left hemiabdomen. There does appear to be some small bowel wall thickening inferiorly. The degree of small bowel distention is less than that of the previous study. 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 RAD/Abdomen Single View (Portable) IMPRESSION: Absence of a complete bowel obstruction. The ingested oral contrast from the May 24, 2019 CT scan now resides on this entirely within the colon and into the rectum. Persistently dilated loops of small bowel centrally within the abdomen. This largest loop is dilated to 3.8 cm. There may be some minimal bowel wall thickening to the small bowel. The number of loops of small bowel that are gaseously distended and dilated has decreased since the previous study. at 0528 Reported and signed by: Amauri Day MD Electronically Signed: Amauri Day MD at 5:27 EDT Tel , Service support ,
[2019-05-26 06:10] LABS: Absolute Lymphocyte Count 1.13 X10^3/uL (0.83-4.51); Absolute Neutrophil Count 4.3 X10^3/uL (2.0-7.7); Basophil# 0.02 X10^3/uL; Basophil% 0.3 % (0-1); Eosinophil# 0.03 X10^3/uL; Eosinophils% 0.5 % (0-5); Hematocrit 41.4 % (37-47); Hemoglobin 13.7 g/dL (12.0-15.0); Lymphocyte # 1.13 X10^3/ul (4.0); Lymphocyte % 18.4 % (19-41); Mean Corp Hgb Conc 33.1 g/dL (32-36); Mean Corpuscular Hgb 31.4 pg (27.0-32.0); Mean Corpuscular Volume 94.7 fL (81-99); Mean Platelet Vol. 9.6 fl (6.2-12.0); Monocyte% 9.8 % (0-10); NRBC Flagged by Analyzer 0 % (0-5); Neutrophil # 4.33 X10^3/uL (2.7-7.7); Neutrophil % 70.3 % (47-70); Platelet Count 243 K/mm3 (150-450); RBC Distribution Width CV 13.2 % (11.6-14.6); Red Blood Count 4.37 M/mm3 (4.2-5.4); White Blood Count 6.2 K/mm3 (4.4-11.0)
[2019-05-26 06:32] LABS: Anion Gap 11 (5-15); BUN 8 mg/dL (7-18); BUN/Creat Ratio 16.9 RATIO (10-20); Calcium,Total 8.1 mg/dL (8.5-10.1); Chloride 109 mmol/L (98-107); Creatinine, Serum 0.47 mg/dL (0.55-1.02); EST Glomerular Filtration Rate 135 mL/min (>60); Est Glom Filt Rate - Afr Amer 164 mL/min (>60); Estimated Creatinine Clearance 41.43 ml/min; Glucose 118 mg/dL (74-106); Potassium 3.1 mmol/L (3.5-5.1); Sodium Level 140 mmol/L (136-145)
[2019-05-26] MEDS: 0.9% Normal Saline 1,000 ML 125 ML IV ×2 (07:26→23:15)
--- NOTE | 2019-05-26 07:59 | PN_ITS ---
Patient Problems: Active and Suspected Problems SBO (small bowel obstruction) (Acute) Subjective: In brief, patient is a 78-year-old lady with multiple abdominal surgeries including hysterectomy, appendectomy, cholecystectomy who presented with abdominal pain. Her assessment was consistent with small bowel obstruction admitted to regular nursing floor for further management 05/26/2019; patient had a tiny bowel movement this a.m. Also admits to passing a lot of gas. Seen by general surgery plan is for patient to be started on clear liquid with plans to advance as tolerated Objective: GENERAL: cooperative HEENT: Atraumatic; EYES; Anicteric, NECK; supple, normal thyroid, RESPIRATORY: Diminished to auscultation CARDIOVASCULAR: Regular S1 S2,s GI: soft, non-tender, normoactive bowel sounds, : No Renal angle tenderness; NEURO: Awake; no lateralizing signs. SKIN: No Rash PSYCH; Normal affect Vitals/I&O's: Vital Signs Temp Pulse Resp BP Pulse Ox 98.6 F 61 16 116/43 L 99 05/26/19 03:34 05/26/19 03:34 05/26/19 03:34 05/26/19 03:34 05/26/19 03:34 Oxygen Delivery Method Room Air Weight: 56.6 kg Body Mass Index (BMI) 25.2 Intake and Output for Last 24 Hours 05/24/19 05/25/19 05/26/19 23:59 23:59 23:59 Intake Total 957 / 957 2923 / 2923 1011 / 1011 Output Total 1000 / 1000 Balance 957 / 957 2923 / 2923 Laboratory Results 05/25/19 06:33: Phosphorus 2.1 L, Magnesium 1.9, TSH 0.99 05/26/19 05:44: WBC 6.2, RBC 4.37, Hgb 13.7, Hct 41.4, MCV 94.7, MCH 31.4, MCHC 33.1, RDW Std Deviation 46.0 H, RDW Coeff of Nick 13.2, Plt Count 243, MPV 9.6, Immature Gran % (Auto) 0.700, Neut % (Auto) 70.3 H, Lymph % (Auto) 18.4 L, [place] % (Auto) 9.8, Eos % (Auto) 0.5, Baso % (Auto) 0.3, Absolute Neuts (auto) 4.3, Absolute Lymphs (auto) 1.13, Nucleated RBC % 0 05/26/19 05:44: Sodium 140, Potassium 3.1 L, Chloride 109 H, Carbon Dioxide 20.0 L, Anion Gap 11, BUN 8, Creatinine 0.47 L, Estim Creat Clear Calc 41.43, Est GFR (MDRD) Af Amer 164, Est GFR (MDRD) Non-Af 135, BUN/Creatinine Ratio 16.9, Glucose 118 H, Calcium 8.1 L Current Medications Calcium Carbonate (Tums) 1,000 mg PO Q6H PRN PRN PRN Reason: DYSPEPSIA Last Admin: 05/25/19 18:05 Dose: 1,000 mg Documented by: Sodium Chloride () 1,000 mls @ 125 mls/hr IV .Q8H [facility] Last Admin: 05/26/19 07:26 Dose: 125 mls/hr Documented by: Pantoprazole Sodium 40 mg/ (Sodium Chloride) 110 mls @ 330 mls/hr IV Q24 [facility] Last Admin: 05/25/19 10:42 Dose: 330 mls/hr Documented by: Ciprofloxacin (Cipro) 400 mg in 200 mls @ 200 mls/hr IV Q12 [facility] Last Admin: 05/25/19 23:11 Dose: 200 mls/hr Documented by: Metronidazole (Flagyl) 500 mg in 100 mls @ 100 mls/hr IV Q8 [facility] Last Admin: 05/26/19 05:34 Dose: 100 mls/hr Documented by: Morphine Sulfate () 2 mg IV Q3H PRN PRN PRN Reason: SEVERE PAIN (6-10/10) Ondansetron HCl (Zofran) 4 mg IV Q6H PRN PRN PRN Reason: NAUSEA Potassium Chloride (K-Dur) 20 meq PO BIDCM [facility] Promethazine HCl (Phenergan) 6.25 mg IV Q6H PRN PRN PRN Reason: NAUSEA/VOMITING Sodium Chloride () 10 - 40 ml IV UD PRN PRN Reason: SALINE FLUSH Last Admin: 05/25/19 00:50 Dose: 10 ml Documented by: Medical Necessity - Tobacco Use Smoking Status: Never smoker Assessment/Plan All Active Problems SBO (small bowel obstruction) (Acute) T In brief, patient is a 78-year-old lady with multiple abdominal surgeries including hysterectomy, appendectomy, cholecystectomy who presented with abdominal pain. Her assessment was consistent with small bowel obstruction admitted to regular nursing floor for further management 1. Small bowel obstruction suspected to be secondary to adhesions: Patient was managed conservatively had return of bowel function , started on clear liquid which is being advanced as tolerated patient was seen in consultation by Dr. Palumbo with general surgery 2. Hiatal hernia with GERD; on PPI 3. Hypomagnesemia; Corrected per protocol 4. Hypokalemia: Corrected per protocol 5. Generalized osteoarthritis Active Medications Calcium Carbonate (Tums) 1,000 mg PO Q6H PRN PRN PRN Reason: DYSPEPSIA Last Admin: 05/25/19 18:05 Dose: 1,000 mg Documented by: Sodium Chloride () 1,000 mls @ 125 mls/hr IV .Q8H [facility] Last Admin: 05/26/19 07:26 Dose: 125 mls/hr Documented by: Pantoprazole Sodium 40 mg/ (Sodium Chloride) 110 mls @ 330 mls/hr IV Q24 [facility] Last Admin: 05/25/19 10:42 Dose: 330 mls/hr Documented by: Ciprofloxacin (Cipro) 400 mg in 200 mls @ 200 mls/hr IV Q12 [facility] Last Admin: 05/25/19 23:11 Dose: 200 mls/hr Documented by: Metronidazole (Flagyl) 500 mg in 100 mls @ 100 mls/hr IV Q8 [facility] Last Admin: 05/26/19 05:34 Dose: 100 mls/hr Documented by: Morphine Sulfate () 2 mg IV Q3H PRN PRN PRN Reason: SEVERE PAIN (6-10/10) Ondansetron HCl (Zofran) 4 mg IV Q6H PRN PRN PRN Reason: NAUSEA Potassium Chloride (K-Dur) 20 meq PO BIDCM [facility] Promethazine HCl (Phenergan) 6.25 mg IV Q6H PRN PRN PRN Reason: NAUSEA/VOMITING Sodium Chloride () 10 - 40 ml IV UD PRN PRN Reason: SALINE FLUSH Last Admin: 05/25/19 00:50 Dose: 10 ml Documented by: Clinical Impression(s) from Imaging Studies Abdomen/Pelvis CT 05/24/19 14:01 IMPRESSION: Findings indicative of small bowel obstruction with the transition zone in the distal ileum. Small amount of free fluid in the cul-de-sac. Sigmoid diverticulosis. Electronically Signed: Félix Ballesteros, at 16:04 EDT , Service support , KUB X-Ray 05/24/19 22:25 IMPRESSION: 1. NG tube tip is coiled in the distal esophagus. This should be removed and replaced. 2. Small bowel obstruction. Oral contrast demonstrates passage into the colon since the earlier CT scan consistent with incomplete obstruction. Electronically Signed: Anisa Gayle MD at 23:56 EDT Tel , Service support , KUB X-Ray 05/25/19 01:35 IMPRESSION: Coiling of esophagogastric tube within the stomach within the posterior mediastinum. 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 at 0235 Reported and signed by: Amauri Day MD Electronically Signed: Amauri Day MD at 2:34 EDT Tel , Service support , KUB X-Ray 05/25/19 05:55 IMPRESSION: Esophagogastric tube is coiled within the posterior mediastinum, from comparison to the CT scan of the abdomen, performed earlier yesterday afternoon, the coiling of the catheter is within the stomach, but within the stomach that is herniated into the posterior mediastinum has a moderate-sized hiatal hernia. at 0214 Reported and signed by: Amauri Day MD Electronically Signed: Amauri Day MD at 2:13 EDT Tel , Service support , KUB X-Ray 05/26/19 05:55 IMPRESSION: Absence of a complete bowel obstruction. The ingested oral contrast from the May 24, 2019 CT scan now resides on this entirely within the colon and into the rectum. Persistently dilated loops of small bowel centrally within the abdomen. This largest loop is dilated to 3.8 cm. There may be some minimal bowel wall thickening to the small bowel. The number of loops of small bowel that are gaseously distended and dilated has decreased since the previous study. at 0528 Reported and signed by: Amauri Day MD Electronically Signed: Amauri Day MD at 5:27 EDT Tel , Service support , Code Visit Inpatient E&M: 11594 Subs Hosp L2
[2019-05-26 08:30] VITALS: BP 122/67; PULSE 74; RESP 18; TEMP 36.5; O2SAT 98
--- NOTE | 2019-05-26 09:12 | PCM.PN.SRG ---
Patient Problems: Active and Suspected Problems SBO (small bowel obstruction) (Acute) Subjective: Patient notes that she is passing flatus and having no abdominal pain. - Physical Exam General: Alert, Oriented x3 Lungs: Normal air movement Cardiovascular: Regular rate, Regular Rhythm Abdomen: Soft, Non Tender, Non-Distended Vital Signs Temp Pulse Resp BP Pulse Ox 97.7 F L 74 18 122/67 H 98 05/26/19 08:30 05/26/19 08:30 05/26/19 08:30 05/26/19 08:30 05/26/19 08:30 Oxygen Delivery Method Room Air Weight: 124 lb 12.506 oz Body Mass Index (BMI) 25.2 Intake and Output for Last 24 Hours 05/24/19 05/25/19 05/26/19 23:59 23:59 23:59 Intake Total 957 / 957 2923 / 2923 1011 / 1011 Output Total 1000 / 1000 Balance 957 / 957 2923 / 2923 Laboratory Tests Past 24 Hrs 05/26/19 05/26/19 05:44 05:44 WBC 6.2 RBC 4.37 Hgb 13.7 Hct 41.4 MCV 94.7 MCH 31.4 MCHC 33.1 RDW Std Deviation 46.0 H RDW Coeff of Nick 13.2 Plt Count 243 MPV 9.6 Immature Gran % (Auto) 0.700 Neut % (Auto) 70.3 H Lymph % (Auto) 18.4 L [place] % (Auto) 9.8 Eos % (Auto) 0.5 Baso % (Auto) 0.3 Absolute Neuts (auto) 4.3 Absolute Lymphs (auto) 1.13 Nucleated RBC % 0 Sodium 140 Potassium 3.1 L Chloride 109 H Carbon Dioxide 20.0 L Anion Gap 11 BUN 8 Creatinine 0.47 L Estim Creat Clear Calc 41.43 Est GFR (MDRD) Af Amer 164 Est GFR (MDRD) Non-Af 135 BUN/Creatinine Ratio 16.9 Glucose 118 H Calcium 8.1 L Medical Necessity - Tobacco Use Smoking Status: Never smoker Assessment/Plan All Active Problems SBO (small bowel obstruction) (Acute) 78-year-old female with resolving small bowel obstruction 1. Patient is doing well this morning. She has no abdominal pain. She is passing flatus. Her KUB shows contrast in the colon with decreasing small bowel distention. I will try her on a liquid diet and see how she does. If things get worse she may still need surgery but I believe her bowel obstruction is resolving conservatively. Ivan Palumbo MD Pager: [facility] [address] [place] [address], [address] [place] [address] Office:
[2019-05-26] MEDS: Ciprofloxacin 400 MG/200 ML BAG 200 MG IV ×2 (09:29→22:04)
[2019-05-26] MEDS: Enoxaparin 40 MG/0.4 ML Syringe SC (09:31)
[2019-05-26 14:45] VITALS: BP 129/62; PULSE 60; RESP 18; TEMP 36.6; O2SAT 98
[2019-05-26] MEDS: traMADol 50 MG Tablet PO (16:00)
[2019-05-26] MEDS: Ferrous Sulfate 325 MG Tablet PO (16:00)
[2019-05-26 20:11] VITALS: BP 125/61; PULSE 68; RESP 16; TEMP 36.6; O2SAT 97
[2019-05-27 03:17] VITALS: BP 117/61; PULSE 62; RESP 16; TEMP 37; O2SAT 97
[2019-05-27] MEDS: Enoxaparin 40 MG/0.4 ML Syringe SC (05:44)
[2019-05-27] MEDS: metroNIDAZOLE 500 MG/100 ML BAG 100 MG IV (05:44)
--- NOTE | 2019-05-27 07:11 | PCM.PN.SRG ---
Patient Problems: Active and Suspected Problems SBO (small bowel obstruction) (Acute) Subjective: Patient tolerating full liquids with no nausea or vomiting or abdominal pain. She reports passing flatus and a small bowel movement yesterday. She feels well and would like to try regular diet. - Physical Exam General: Alert, Oriented x3 Lungs: Normal air movement Abdomen: Soft, Non Tender, Non-Distended Vital Signs Temp Pulse Resp BP Pulse Ox 98.6 F 62 16 117/61 97 05/27/19 03:17 05/27/19 03:17 05/27/19 03:17 05/27/19 03:17 05/27/19 03:17 Oxygen Delivery Method Room Air Weight: 124 lb 12.506 oz Body Mass Index (BMI) 25.2 Intake and Output for Last 24 Hours 05/25/19 05/26/19 05/27/19 23:59 23:59 23:59 Intake Total 2923 / 2923 3598 / 3598 1084 / 1084 Output Total 3700 / 3700 900 / 900 Balance 2923 / 2923 -102 / -102 184 / 184 Medical Necessity - Tobacco Use Smoking Status: Never smoker Assessment/Plan All Active Problems SBO (small bowel obstruction) (Acute) 78-year-old female with resolving small bowel obstruction 1. Patient appears to be doing well today. She is passing flatus and had a small bowel movement yesterday. She tolerated full liquids well with no nausea or vomiting or abdominal pain. I will advance her to regular diet today and if she tolerates this regular diet she can be discharged home from my standpoint. I will stop her IV fluids and her antibiotics as well. Ivan Palumbo MD Pager: [facility] [address] [place] [address], [address] [place] [address] Office:
[2019-05-27 08:20] VITALS: BP 124/69; PULSE 88; RESP 16; TEMP 37.2; O2SAT 95
[2019-05-27] MEDS: Ferrous Sulfate 325 MG Tablet PO (08:23)
[2019-05-27] MEDS: Aspirin E.C. 81 MG Tablet PO (08:23)
[2019-05-27] MEDS: Pantoprazole Sodium 20 MG Tablet PO (08:23)
--- NOTE | 2019-05-27 09:15 | DCINST_ITS ---
- Discharge Diagnoses Current Active Problems: Current Active and Chronic Problems SBO (small bowel obstruction) (Acute) You will use the following diet at home:: No restrictions Your food should be the consistency of: Regular Discharge Activity: Return to Normal Activity Allergies/Adverse Reactions: Allergies mold Allergy (Verified 05/24/19 13:36) Unknown Medications to take at Discharge Aspirin E.C. [Ecotrin] 81 mg PO DAILY@0800 05/24/19 Ferrous Sulfate [Iron] 325 mg PO BID 05/24/19 Naproxen 500 mg PO BID PRN PRN 05/24/19 Omeprazole Magnesium [Prilosec Otc] 20 mg PO DAILY 05/24/19 traMADol [Ultram] 50 mg PO BID PRN PRN 05/24/19 Potassium Chloride [K-Dur] 20 meq PO BIDCM #30 tab 05/27/19 The following prescriptions were given: Potassium Chloride [K-Dur] 20 meq PO BIDCM #30 tab Transmission Status: Pending to [id number] Primary Care Physician: Jose Leroy DO [Primary Care Provider] - Please follow up with your Primary Care Physician in: IN 5-7 DAYS Test Results: Test results from this visit will be discussed in further detail at your follow- up appointment, if applicable. Please Follow Up With: Ivan Palumbo MD When: IN 1-2 WEEKS Proposed Discharge Date: 05/27/19
--- NOTE | 2019-05-27 09:17 | PCM.DC.SUM ---
Discharge Date and Diagnosis - Problem List Patient Problems: Active and Suspected Problems SBO (small bowel obstruction) (Acute) Date of Admission: 05/24/19 Date of Discharge: 05/27/19 - Primary Discharge Diagnosis Active and Suspected Problems SBO (small bowel obstruction) (Acute) Hospital Course and Treatment Imaging Results: Clinical Impression(s) from Imaging Studies Abdomen/Pelvis CT 05/24/19 14:01 IMPRESSION: Findings indicative of small bowel obstruction with the transition zone in the distal ileum. Small amount of free fluid in the cul-de-sac. Sigmoid diverticulosis. Electronically Signed: Félix Ballesteros, at 16:04 EDT , Service support , KUB X-Ray 05/24/19 22:25 IMPRESSION: 1. NG tube tip is coiled in the distal esophagus. This should be removed and replaced. 2. Small bowel obstruction. Oral contrast demonstrates passage into the colon since the earlier CT scan consistent with incomplete obstruction. Electronically Signed: Anisa Gayle MD at 23:56 EDT Tel , Service support , KUB X-Ray 05/25/19 01:35 IMPRESSION: Coiling of esophagogastric tube within the stomach within the posterior mediastinum. 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 at 0235 Reported and signed by: Amauri Day MD Electronically Signed: Amauri Day MD at 2:34 EDT Tel , Service support , KUB X-Ray 05/25/19 05:55 IMPRESSION: Esophagogastric tube is coiled within the posterior mediastinum, from comparison to the CT scan of the abdomen, performed earlier yesterday afternoon, the coiling of the catheter is within the stomach, but within the stomach that is herniated into the posterior mediastinum has a moderate-sized hiatal hernia. at 0214 Reported and signed by: Amauri Day MD Electronically Signed: Amauri Day MD at 2:13 EDT Tel , Service support , KUB X-Ray 05/26/19 05:55 IMPRESSION: Absence of a complete bowel obstruction. The ingested oral contrast from the May 24, 2019 CT scan now resides on this entirely within the colon and into the rectum. Persistently dilated loops of small bowel centrally within the abdomen. This largest loop is dilated to 3.8 cm. There may be some minimal bowel wall thickening to the small bowel. The number of loops of small bowel that are gaseously distended and dilated has decreased since the previous study. at 0528 Reported and signed by: Amauri Day MD Electronically Signed: Amauri Day MD at 5:27 EDT Tel , Service support , Summary of Care Provided: In brief, patient is a 78-year-old lady with multiple abdominal surgeries including hysterectomy, appendectomy, cholecystectomy who presented with abdominal pain. Her assessment was consistent with small bowel obstruction admitted to regular nursing floor for further management 1. Small bowel obstruction suspected to be secondary to adhesions: Patient was managed conservatively had return of bowel function , started on clear liquid which is being advanced as tolerated patient was seen in consultation by Dr. Palumbo with general surgery patient did improve with conservative management discharged 3 days after her admission 2. Hiatal hernia with GERD; on PPI 3. Hypomagnesemia; Corrected per protocol 4. Hypokalemia: Corrected per protocol 5. Generalized osteoarthritis Patient Problems: Active and Suspected Problems SBO (small bowel obstruction) (Acute) Objective: GENERAL: cooperative HEENT: Atraumatic; EYES; Anicteric, NECK; supple, normal thyroid, RESPIRATORY: Diminished to auscultation CARDIOVASCULAR: Regular S1 S2,s GI: soft, non-tender, normoactive bowel sounds, : No Renal angle tenderness; NEURO: Awake; no lateralizing signs. SKIN: No Rash PSYCH; Normal affect - Physical Exam Vital Signs Temp Pulse Resp BP Pulse Ox 99.0 F 88 16 124/69 H 95 05/27/19 08:20 05/27/19 08:20 05/27/19 08:20 05/27/19 08:20 05/27/19 08:20 Oxygen Delivery Method Room Air Weight: 56.6 kg Body Mass Index (BMI) 25.2 Intake and Output for Last 24 Hours 05/25/19 05/26/19 05/27/19 23:59 23:59 23:59 Intake Total 2923 / 2923 3598 / 3598 1084 / 1084 Output Total 3700 / 3700 900 / 900 Balance 2923 / 2923 -102 / -102 184 / 184 Discharge Diet: No Restrictions Discharge Activity: Return to Normal Activity Home Medications: Medications to take at Discharge Aspirin E.C. [Ecotrin] 81 mg PO DAILY@0800 05/24/19 Ferrous Sulfate [Iron] 325 mg PO BID 05/24/19 Naproxen 500 mg PO BID PRN PRN 05/24/19 Omeprazole Magnesium [Prilosec Otc] 20 mg PO DAILY 05/24/19 traMADol [Ultram] 50 mg PO BID PRN PRN 05/24/19 Potassium Chloride [K-Dur] 20 meq PO BIDCM #30 tab 05/27/19 Following Prescrptions Were Given to Patient: Potassium Chloride [K-Dur] 20 meq PO BIDCM #30 tab Transmission Status: Sent to [id number] Primary Care Physician: Jose Leroy DO [Primary Care Provider] - Please follow up with your Primary Care Physician in: IN 5-7 DAYS Please Follow Up With: Ivan Palumbo MD When: IN 1-2 WEEKS Disposition: Home Minutes spent on discharge:: 35 Patient Condition:: Stable Medical Necessity - Tobacco Use Smoking Status: Never smoker Meaningful Use Info Meaningful Use Diagnoses (Choose all that apply): None applicable Code Visit Inpatient E&M: 19195 Disch Hosp
[2019-05-27 10:31] LABS: Potassium 3.5 mmol/L (3.5-5.1)
== END 2019-05-27 11:40 | disposition home or self-care (01) | DRG 390 ==
LOC: ED 14:04 → PCU 19:39 → MS3 05-25 16:41
PROVIDERS: Physician Assistant; Admitting Provider Internal Medicine; Emergency Provider Emergency Medicine; Family Provider Family Medicine; PCP Family Medicine; Referring Provider Internal Medicine; Visit Provider Internal Medicine
DX: K56.609 Unspecified intestinal obstruction, unspecified as to partial versus complete obstruction (principal); E86.0 Dehydration; E87.6 Hypokalemia; E83.42 Hypomagnesemia; E06.3 Autoimmune thyroiditis; K44.9 Diaphragmatic hernia without obstruction or gangrene; M15.9 Polyosteoarthritis, unspecified; K21.9 Gastro-esophageal reflux disease without esophagitis; Z79.82 Long term (current) use of aspirin; Z79.1 Long term (current) use of non-steroidal anti-inflammatories (NSAID); Z79.899 Other long term (current) drug therapy; Z90.710 Acquired absence of both cervix and uterus; Z90.49 Acquired absence of other specified parts of digestive tract
CPT/HCPCS: 36415; 74018; 74177; 80048; 80053; 83605; 83690; 83735; 84100; 84132; 84443; 85025; 85610; 85730; 94640; 99284; J7030; Q9967; A4216; J0744; J2405

== ENCOUNTER → 2019-11-17 11:54 | Outpatient (CLI) | payer MEDICARE, SELFPAY ==
[2019-06-03 14:00] VITALS: BMI 25.2
[2019-11-17 16:21] LABS: Free T3 2.6 pg/mL (2.18-3.98); T4 Free Direct 1.25 ng/dL (0.76-1.46); Thyroid Stim Hormone (TSH) 2.04 uIU/mL (0.358-3.74)
[2019-11-25 09:12] LABS: Thyroid Peroxidase AB 8 IU/mL (0-34)
[2019-11-25 09:13] LABS: Anti-Thyroglobulin AB 27.8 IU/mL (0.0-0.9); T3 Reverse 28.1 ng/dL (9.2-24.1); Thyroglobulin RIA 11 ng/mL (.)
== END ==
PROVIDERS: Family Provider Family Medicine; PCP Family Medicine; Visit Provider Family Medicine
DX: E06.3 Autoimmune thyroiditis (principal)
CPT/HCPCS: 36415; 84432; 84439; 84443; 84481; 84482; 86376; 86800

== ENCOUNTER → 2019-11-26 09:06 | Outpatient (CLI) | payer MEDICARE, SELFPAY ==
[2019-06-03 14:00] VITALS: BMI 25.2
--- NOTE | 2019-11-26 09:10 | US_ITS ---
STUDY: THYROID ULTRASOUND REASON FOR EXAM: Female, 78 years old. NODULE TECHNIQUE: Ultrasound evaluation of the thyroid was performed with real-time and static robles-scale imaging. COMPARISON: 03/30/2019 FINDINGS: RIGHT LOBE: The right lobe of the thyroid gland measures 3.4 x 1.5 x 1.8 cm. There is a heterogeneous echotexture. Lower pole solid nodule measuring 5 x 6 x 4 mm. LEFT LOBE: The left lobe of the thyroid gland measures 3.8 x 1.1 x 1.8 cm. There is a heterogeneous echotexture. Midpole hypoechoic solid nodule measuring 6 x 6 x 6 mm. ISTHMUS: The isthmus measures 4 mm. The regional lymph nodes are normal. US/Thyroid IMPRESSION: Stable heterogeneous appearance of the thyroid parenchyma diffusely with stable small subcentimeter solid nodules. Electronically Signed: Indra Escobedo DO at 11:22 EST Tel , Service support ,
== END ==
PROVIDERS: PCP Family Medicine; Referring Provider Family Medicine; Visit Provider Family Medicine
DX: E04.2 Nontoxic multinodular goiter (principal)
CPT/HCPCS: 76536

== ENCOUNTER → 2020-01-04 10:54 | Outpatient (CLI) | payer MEDICARE, SELFPAY ==
[2019-12-23 15:49] VITALS: BMI 25.2
--- NOTE | 2020-01-04 10:58 | BD_ITS ---
STUDY: DUAL ENERGY X-RAY ABSORPTIOMETRY / DXA REASON FOR EXAM: Female, 79 years old. ASSISTANT TEACHER PRIMARY -- HX OF HRT -- TAKES MULTIVITAMIN AND VITAMIN D -- HX OF TAKING RECLAST AND ACTONEL- NOTHING RECENTLY -- DOES MODERATE AMOUNT OF EXERCISE -- FAMILY HX OF OSTEO- MOTHER -- JANINA OF 2.75 INCHES TECHNIQUE: Bone Mineral Density (BMD) measurements of lumbar spine and bilateral hips were obtained. COMPARISON: Comparison is made with prior study dated September 07, 2015. FINDINGS: Lumbar Spine (L1-L4): g/cm2 (0.857) / T-score (-2.9) / Z-score (-1.0) Findings are suggestive of osteoporosis with a high fracture risk. Increased kyphosis. Left Femur Total: g/cm2 (0.678) / T-score (-2.6) / Z-score (-0.7) Left Femoral Neck: g/cm2 (0.729) / T-score (-2.2) / Z-score (-0.1) Right Femur Total: g/cm2 (0.706) / T-score (-2.4) / Z-score (-0.4) Right Femoral Neck: g/cm2 (0.817) / T-score (-1.6) / Z-score (0.5) The T-Scores on the most recent prior examination were: Lumbar Spine (L1-L4): There has been worsening of bone density since the previous examination. Left Femur Total: which represents a worsening of 10.6%. Right Femur Total: which represents a worsening of 12.4%. BD/Dexa Bone Density Study IMPRESSION: The patient is considered osteoporotic as outlined below according to World Ethan Organization (WHO) criteria with a high fracture risk. There has been worsening of bone density since the previous examination. Reference Information: The T-score is the number of standard deviations above or below the standard which is normal for young adults at their peak bone mineral density. The World Health Organization (WHO) interprets the T-scores as follows: Above -1 Normal bone density Between -1 and -2.5 Osteopenia Equal to / or below -2.5 Osteoporosis As a practical clinical guideline, osteopenia may be graded as follows: Mild -1 through -1.5 Moderate -1.6 through -2.0 Severe -2.1 through -2.4 The Z-score is the number of standard deviations above or below age-matched controls. A Z-score of less than -1.5 would be considered abnormal. References: 1. NIH Osteoporosis and Related Bone Diseases http://www.osteo.org 2. International Society for Clinical Densitometry http://www.iscd.org 3. National Osteoporosis Foundation http://www.nof.org Electronically Signed: Félix Ballesteros, at 14:36 EDT , Service support ,
== END ==
PROVIDERS: PCP Family Medicine; Referring Provider Internal Medicine Endocrinology, Diabetes & Metabolism; Visit Provider Internal Medicine Endocrinology, Diabetes & Metabolism
DX: M81.0 Age-related osteoporosis without current pathological fracture (principal); M85.80 Other specified disorders of bone density and structure, unspecified site; Z79.890 Hormone replacement therapy
CPT/HCPCS: 77080

== ENCOUNTER → 2020-07-21 11:27 | Outpatient (CLI) | payer MEDICARE, SELFPAY ==
[2020-03-02 10:35] VITALS: BMI 25.2
--- NOTE | 2020-07-21 11:43 | EKG12_ITS ---
Test Reason : PRE OP Blood Pressure : / mmHG Vent. Rate : 077 BPM Atrial Rate : 077 BPM P-R Int : 152 ms QRS Dur : 088 ms QT Int : 378 ms P-R-T Axes : 046 -19 029 degrees QTc Int : 427 ms Normal sinus rhythm Normal ECG Confirmed by LILO ROE, LEWIS ([id number]), multimedia editor CHAGO JACKSON ([id number]) on 07/26/2020 8:58:34 AM Referred By: Kristofer Tomlin Confirmed By:LEWIS NAGY MD
[2020-07-21 13:14] LABS: Hematocrit 44.8 % (37-47); Hemoglobin 14.8 g/dL (12.0-15.0); Mean Corpuscular Volume 93.9 fL (81-99); Mean Platelet Vol. 9.7 fl (6.2-12.0); Platelet Count 326 K/mm3 (150-450); RBC Distribution Width CV 13.9 % (11.6-14.6); RBC Distribution Width SD 47.8 fl (35.1-43.9); Red Blood Count 4.77 M/mm3 (4.2-5.4); White Blood Count 5.7 K/mm3 (4.4-11.0)
[2020-07-21 13:40] LABS: Anion Gap 5 (5-15); BUN 18 mg/dL (7-18); Chloride 105 mmol/L (98-107); Creatinine, Serum 0.67 mg/dL (0.55-1.02); EST Glomerular Filtration Rate 91 mL/min (>60); Est Glom Filt Rate - Afr Amer 110 mL/min (>60); Glucose 106 mg/dL (74-106); Potassium 4.1 mmol/L (3.5-5.1); Sodium Level 138 mmol/L (136-145)
== END ==
PROVIDERS: PCP Family Medicine; Referring Provider Orthopaedic Surgery; Visit Provider Orthopaedic Surgery
DX: Z01.818 Encounter for other preprocedural examination (principal); Z01.810 Encounter for preprocedural cardiovascular examination
CPT/HCPCS: 36415; 80048; 85027; 93005

== ENCOUNTER → 2020-08-14 12:06 | Outpatient (CLI) | payer MEDICARE, SELFPAY ==
[2020-03-02 10:35] VITALS: BMI 25.2
--- NOTE | 2020-08-14 12:07 | BI_ITS ---
MAMMOGRAPHY - BILATERAL SCREENING REASON FOR EXAM: Female, 79 years old. Routine annual screening examination. PERTINENT HISTORY: Non-contributory. TECHNIQUE: Digital bilateral breast sapna (3D mammographic acquisition) in the CC and MLO projections. 2-D mediolateral oblique (MLO) and craniocaudad (CC) views of both breasts were obtained. CAD: Full Field Digital Mammography with Computer Added Detection was performed. COMPARISON: Comparison is made with prior study dated 11/18/2018 and 10/06/2017. FINDINGS: Breast Composition: There are scattered areas of fibroglandular density. There are no dominant masses or suspicious calcifications. Stable small benign-appearing bilateral axillary No other significant abnormalities are identified. There has been no significant change since the prior study. BI/SCREEN MAMM (CAD) W/SAPNA BILAT IMPRESSION: Stable bilateral screening mammogram. Yearly follow-up mammogram recommended. (A) ASSESSMENT CATEGORY: BIRADS Category 2: Benign. A letter regarding these results will be sent to the patient by the facility within 30 days. Approximately 10% of breast cancers are not detected by mammography. A normal mammogram should not delay biopsy of a clinically suspicious abnormality. [id number] Electronically Signed: Félix Ballesteros, at 13:01 EDT , Service support ,
== END ==
PROVIDERS: PCP Family Medicine; Referring Provider Family Medicine; Visit Provider Family Medicine
DX: Z12.31 Encounter for screening mammogram for malignant neoplasm of breast (principal)
CPT/HCPCS: 77063; 77067

== ENCOUNTER → 2020-12-28 12:39 | Outpatient (CLI) | payer MEDICARE, SELFPAY ==
[2020-12-28 15:59] LABS: Ferritin 18 ng/mL (8-252); Iron 93 ug/dL (50-170); T4 Free Direct 1.31 ng/dL (0.76-1.46); Thyroid Stim Hormone (TSH) 1.75 uIU/mL (0.358-3.74)
== END ==
PROVIDERS: PCP Family Medicine; Visit Provider Family Medicine
DX: D50.9 Iron deficiency anemia, unspecified (principal); E06.3 Autoimmune thyroiditis
CPT/HCPCS: 36415; 82728; 83540; 84439; 84443

== ENCOUNTER → 2021-03-21 10:47 | Outpatient (CLI) | payer MEDICARE, SELFPAY ==
[2021-03-21 10:26] VITALS: BMI 25.2
[2021-03-21 12:12] LABS: Absolute Neutrophil Count 3.5 X10^3/uL (2.0-7.7); Basophil# 0.07 X10^3/uL; Basophil% 1.1 % (0-1); Eosinophil# 0.14 X10^3/uL; Eosinophils% 2.3 % (0-5); Hematocrit 41.4 % (37-47); Hemoglobin 13.1 g/dL (12.0-15.0); Lymphocyte % 30.8 % (19-41); Mean Corp Hgb Conc 31.6 g/dL (32-36); Mean Corpuscular Hgb 28.4 pg (27.0-32.0); Mean Corpuscular Volume 89.6 fL (81-99); Mean Platelet Vol. 9.7 fl (6.2-12.0); Monocyte# 0.55 X10^3/uL; Monocyte% 8.9 % (0-10); NRBC Flagged by Analyzer 0 % (0-5); Neutrophil # 3.49 X10^3/uL (2.7-7.7); Neutrophil % 56.7 % (47-70); Platelet Count 378 K/mm3 (150-450); RBC Distribution Width CV 14.2 % (11.6-14.6); RBC Distribution Width SD 46.6 fl (35.1-43.9); Red Blood Count 4.62 M/mm3 (4.2-5.4); White Blood Count 6.2 K/mm3 (4.4-11.0)
[2021-03-21 12:27] LABS: ALB/GLOB Ratio 1.4 RATIO (0.9-2.4); AST(SGOT) 21 U/L (15-37); Alanine Aminotransfer ALT/SGPT 22 U/L (13-56); Albumin, Serum 4.1 g/dL (3.2-5.0); Alkaline Phosphatase 34 U/L (45-117); Anion Gap 7 (5-15); BUN 21 mg/dL (7-18); BUN/Creat Ratio 29.4 RATIO (10-20); Calcium,Total 9.2 mg/dL (8.5-10.1); Chloride 105 mmol/L (98-107); Creatinine, Serum 0.72 mg/dL (0.55-1.02); EST Glomerular Filtration Rate 83 mL/min (>60); Est Glom Filt Rate - Afr Amer 101 mL/min (>60); Globulin 2.9 g/dL (2.2-4.2); Glucose 102 mg/dL (74-106); Potassium 4.5 mmol/L (3.5-5.1); Sodium Level 139 mmol/L (136-145)
== END ==
PROVIDERS: PCP Internal Medicine; Referring Provider Internal Medicine; Visit Provider Internal Medicine
DX: K21.9 Gastro-esophageal reflux disease without esophagitis (principal); M81.0 Age-related osteoporosis without current pathological fracture
CPT/HCPCS: 36415; 80053; 85025

== ENCOUNTER → 2021-08-17 10:38 | Outpatient (CLI) | payer MEDICARE, SELFPAY ==
--- NOTE | 2021-08-17 10:40 | BI_ITS ---
MAMMOGRAPHY - BILATERAL SCREENING REASON FOR EXAM: Female, 80 years old. Routine annual screening examination. PERTINENT HISTORY: Non-contributory. Remote right excisional breast biopsy. TECHNIQUE: Digital bilateral breast sapna (3D mammographic acquisition) in the CC and MLO projections. 2-D mediolateral oblique (MLO) and craniocaudad (CC) views of both breasts were obtained. CAD: Full Field Digital Mammography with Computer Added Detection was performed. COMPARISON: Comparison is made with prior study 08/14/2020 and 11/18/2018. FINDINGS: Breast Composition: There are scattered areas of fibroglandular density. There are no dominant masses or suspicious calcifications. Stable 4.4 mm well-defined nodule in the upper lateral aspect of the left breast suggestive of a small lymph node. Stable benign-appearing bilateral axillary lymph nodes. No other significant abnormalities are identified. There has been no significant change since the prior study. BI/SCRN MAMM (CAD)W/SAPNA BILAT IMPRESSION: Stable bilateral screening mammogram. Yearly follow-up mammogram recommended. (A) ASSESSMENT CATEGORY: BIRADS Category 2: Benign. A letter regarding these results will be sent to the patient by the facility within 30 days. Approximately 10% of breast cancers are not detected by mammography. A normal mammogram should not delay biopsy of a clinically suspicious abnormality. [id number] Electronically Signed: Félix Ballesteros MD at 12:28 EDT , Service support ,
== END ==
PROVIDERS: PCP Internal Medicine; Referring Provider Internal Medicine; Visit Provider Internal Medicine
DX: Z12.31 Encounter for screening mammogram for malignant neoplasm of breast (principal)
CPT/HCPCS: 77063; 77067

== ENCOUNTER → 2021-08-24 11:43 | Outpatient (CLI) | payer MEDICARE, SELFPAY ==
[2021-08-24 15:01] LABS: Absolute Lymphocyte Count 1.59 X10^3/uL (0.83-4.51); Absolute Neutrophil Count 3.3 X10^3/uL (2.0-7.7); Basophil# 0.06 X10^3/uL; Basophil% 1.1 % (0-1); Eosinophil# 0.11 X10^3/uL; Hemoglobin 13.4 g/dL (12.0-15.0); Lymphocyte # 1.59 X10^3/ul (0.83-4.51); Lymphocyte % 28.7 % (19-41); Mean Corp Hgb Conc 32.7 g/dL (32-36); Mean Corpuscular Hgb 30.7 pg (27.0-32.0); Mean Platelet Vol. 9.9 fl (6.2-12.0); Monocyte# 0.43 X10^3/uL; Monocyte% 7.8 % (0-10); NRBC Flagged by Analyzer 0 % (0-5); Neutrophil # 3.34 X10^3/uL (2.7-7.7); Neutrophil % 60.2 % (47-70); Platelet Count 333 K/mm3 (150-450); RBC Distribution Width CV 15.4 % (11.6-14.6); RBC Distribution Width SD 53.5 fl (35.1-43.9); Red Blood Count 4.36 M/mm3 (4.2-5.4); White Blood Count 5.5 K/mm3 (4.4-11.0)
[2021-08-24 15:29] LABS: Vitamin B12 635 pg/mL (211-911); Vitamin D,25 Hydroxy 121.5 ng/mL
[2021-08-24 15:41] LABS: ALB/GLOB Ratio 1.2 RATIO (0.9-2.4); AST(SGOT) 20 U/L (15-37); Alanine Aminotransfer ALT/SGPT 28 U/L (13-56); Albumin, Serum 3.6 g/dL (3.2-5.0); Alkaline Phosphatase 35 U/L (45-117); Anion Gap 5 (5-15); BUN 19 mg/dL (7-18); BUN/Creat Ratio 25.7 RATIO (10-20); Calcium,Total 9.4 mg/dL (8.5-10.1); Chloride 105 mmol/L (98-107); Creatinine, Serum 0.74 mg/dL (0.55-1.02); EST Glomerular Filtration Rate 80 mL/min (>60); Est Glom Filt Rate - Afr Amer 97 mL/min (>60); Ferritin 22 ng/mL (8-252); Globulin 3.1 g/dL (2.2-4.2); Glucose 100 mg/dL (74-106); Magnesium 2.1 mg/dL (1.6-2.6); Potassium 4.2 mmol/L (3.5-5.1); Protein, Total 6.7 g/dL (6.4-8.2); Sodium Level 140 mmol/L (136-145); Thyroid Stim Hormone (TSH) 1.45 uIU/mL (0.358-3.74)
== END ==
PROVIDERS: PCP Internal Medicine; Referring Provider Internal Medicine Endocrinology, Diabetes & Metabolism; Visit Provider Internal Medicine Endocrinology, Diabetes & Metabolism
DX: K56.609 Unspecified intestinal obstruction, unspecified as to partial versus complete obstruction (principal); E04.9 Nontoxic goiter, unspecified; D64.9 Anemia, unspecified; R20.2 Paresthesia of skin; M81.0 Age-related osteoporosis without current pathological fracture; E55.9 Vitamin D deficiency, unspecified
CPT/HCPCS: 36415; 80053; 82306; 82607; 82728; 83735; 84443; 85025

== ENCOUNTER 2022-02-07 12:51 | Outpatient (CLI) | payer MEDICARE, SELFPAY ==
--- NOTE | 2022-02-07 12:57 | US_ITS ---
History: Thyroid nodule Thyroid ultrasound: Findings: Right thyroid lobe measures 3.9 x 1.5 x 1.5 cm. Left thyroid lobe measures 4.1 x 1.2 x 1.2 cm. Nodular appearance of both lobes noted. Dominant 6 mm right thyroid nodule. This nodule is solid or almost completely solid, hyperechoic or isoechoic, [id number], smoothly marginated and contains no echogenic foci. This nodule is mildly suspicious but no FNA or follow-up is necessary given the small size of this nodule. Dominant 7 mm left thyroid nodule. This nodule is solid or almost completely solid, hypoechoic, [id number], is lobulated or irregular and contains no echogenic foci. This nodule is highly suspicious but no FNA or follow-up is necessary given the small size of this nodule. IMPRESSION: Bilateral thyroid nodules. See discussion above. at 1126 Reported and signed by: Dom Mejia MD Electronically Signed: Dom Mejia MD at 11:25 EDT , US/Thyroid
--- NOTE | 2022-02-07 13:54 | BD_ITS ---
STUDY: DUAL ENERGY X-RAY ABSORPTIOMETRY / DXA REASON FOR EXAM: Female, 81 years old. M810. The patient is postmenopausal. TECHNIQUE: Bone Mineral Density (BMD) measurements of lumbar spine and bilateral hips were obtained. COMPARISON: Comparison is made with prior study of 01/04/2020. FINDINGS: Lumbar Spine (L1-L4): g/cm2 (0.804) / T-score (-1.9) / Z-score (0.7) Findings are suggestive of osteopenia with a moderate fracture risk. Left Femur Total: g/cm2 (0.639) / T-score (-2.5) / Z-score (-0.4) Left Femoral Neck: g/cm2 (0.626) / T-score (-2.0) / Z-score (0.3) Right Femur Total: g/cm2 (0.58) / T-score (-3.0) / Z-score (-0.8) Right Femoral Neck: g/cm2 (0.591) / T-score (-2.3) / Z-score (0.0) The T-Scores on the most recent prior examination were: Lumbar Spine (L1-L4): There has been improvement of bone density since the previous examination. Left Femur Total: which represents an improvement of 2.8%. Right Femur Total: which represents a worsening of 10.3%. BD/Dexa Bone Density Study IMPRESSION: The patient is considered osteoporotic as outlined below according to World Ethan Organization (WHO) criteria with a high fracture risk. There has been improvement of bone density since the previous examination. Reference Information: The T-score is the number of standard deviations above or below the standard which is normal for young adults at their peak bone mineral density. The World Health Organization (WHO) interprets the T-scores as follows: Above -1 Normal bone density Between -1 and -2.5 Osteopenia Equal to / or below -2.5 Osteoporosis As a practical clinical guideline, osteopenia may be graded as follows: Mild -1 through -1.5 Moderate -1.6 through -2.0 Severe -2.1 through -2.4 The Z-score is the number of standard deviations above or below age-matched controls. A Z-score of less than -1.5 would be considered abnormal. References: 1. NIH Osteoporosis and Related Bone Diseases www osteo.org 2. International Society for Clinical Densitometry www iscd.org 3. National Osteoporosis Foundation www nof.org Electronically Signed: Félix Ballesteros MD at 12:24 EDT ,
== END 2022-02-07 23:59 | disposition home or self-care (01) ==
PROVIDERS: PCP Internal Medicine; Visit Provider Internal Medicine
DX: E04.1 Nontoxic single thyroid nodule (principal); M81.0 Age-related osteoporosis without current pathological fracture
CPT/HCPCS: 76536; 77080

== ENCOUNTER → 2022-03-05 | Outpatient (CLI) | payer MEDICARE, SELFPAY ==
[2022-03-05 13:14] LABS: Absolute Lymphocyte Count 1.81 X10^3/uL (0.83-4.51); Absolute Neutrophil Count 3.6 X10^3/uL (2.0-7.7); Basophil# 0.04 X10^3/uL; Basophil% 0.7 % (0-1); Eosinophil# 0.06 X10^3/uL; Hemoglobin 14.7 g/dL (12.0-15.0); Lymphocyte # 1.81 X10^3/ul (0.83-4.51); Lymphocyte % 29.7 % (19-41); Mean Corp Hgb Conc 33.4 g/dL (32-36); Mean Corpuscular Hgb 32.2 pg (27.0-32.0); Mean Corpuscular Volume 96.5 fL (81-99); Mean Platelet Vol. 8.7 fl (6.2-12.0); Monocyte# 0.54 X10^3/uL; Monocyte% 8.9 % (0-10); NRBC Flagged by Analyzer 0 % (0-5); Neutrophil # 3.62 X10^3/uL (2.7-7.7); Neutrophil % 59.4 % (47-70); Platelet Count 324 K/mm3 (150-450); RBC Distribution Width CV 13.3 % (11.6-14.6); RBC Distribution Width SD 47.4 fl (35.1-43.9); Red Blood Count 4.56 M/mm3 (4.2-5.4); White Blood Count 6.1 K/mm3 (4.4-11.0)
--- NOTE | 2022-03-05 13:18 | CT_ITS ---
EXAM: CT RIGHT LOWER EXTREMITY WITHOUT INTRAVENOUS CONTRAST CLINICAL INDICATION: VALGUS DEFORMITY TECHNIQUE: Helically acquired images were obtained of the right lower extremity without intravenous contrast. 2-D reformats were performed by the technologist. CTDIvol = ( 18.41 ) mGy, DLP = ( 1252.26 ) mGycm This CT exam was performed using one or more of the following dose reduction techniques: automated exposure control, adjustment of the mA and/or kV according to patient size, and/or use of iterative reconstruction technique. This report was created using HeadMix report HandUp PBC technology. COMPARISON: None. FINDINGS: Moderate to severe tricompartmental osteoarthrosis, worse at the patellofemoral compartment with moderate lateral patellar subluxation. Calcification along the posterior tibialis tendon and peroneal brevis tendon of the ankle. Small suprapatellar joint effusion without intra-articular calcific body that measures 1.3 cm. Diffuse osteopenia. Prominent posterior calcaneal enthesophyte. Peripheral vascular disease. Small fat-containing right inguinal hernia. Distal colonic diverticulosis but no convincing evidence for acute diverticulitis. CT/Extremity Lower without Contra IMPRESSION: Moderate to severe tricompartmental osteoarthrosis of the knee with 1.3 cm intra-articular ossific body. Electronically Signed: Mannie Adams MD at 21:03 EDT ,
--- NOTE | 2022-03-05 13:25 | RAD_ITS ---
EXAM: XR CHEST, 2 VIEWS CLINICAL INDICATION: PRE OP RESP EXAM TECHNIQUE: Frontal and lateral views of the chest. This report was created using Yunno report generation technology. COMPARISON: None. FINDINGS: LUNGS AND PLEURAL SPACES: Emphysema suggested. No pneumothorax. No effusion. HEART: Unremarkable. Cardiac silhouette not enlarged. MEDIASTINUM: Central airways and mediastinal contour are unremarkable. BONES/JOINTS: Left shoulder arthroplasty without gross complication. Diffuse osteopenia. Degenerative changes of the spine at multiple levels. SOFT TISSUES: Unremarkable. VASCULATURE: Atherosclerotic calcifications of the ectatic thoracic aortic arch. RAD/Chest PA and Lateral IMPRESSION: No acute cardiopulmonary disease. Electronically Signed: Mannie Adams MD at 21:09 EDT ,
[2022-03-05 13:44] LABS: Albumin, Serum 3.8 g/dL (3.2-5.0); Anion Gap 5 (5-15); BUN 21 mg/dL (7-18); BUN/Creat Ratio 31.6 RATIO (10-20); Calcium,Total 9.7 mg/dL (8.5-10.1); Chloride 102 mmol/L (98-107); Creatinine, Serum 0.66 mg/dL (0.55-1.02); EST Glomerular Filtration Rate 91 mL/min (>60); Est Glom Filt Rate - Afr Amer 110 mL/min (>60); Glucose 132 mg/dL (74-106); Potassium 4.7 mmol/L (3.5-5.1); Sodium Level 137 mmol/L (136-145)
[2022-03-05 13:45] LABS: Hemoglobin A1c 5.7 % (3.8-5.6)
== END | disposition home or self-care (01) ==
LOC: CT 13:14
PROVIDERS: PCP Internal Medicine; Referring Provider Specialist; Visit Provider Specialist
DX: M21.061 Valgus deformity, not elsewhere classified, right knee (principal); Z01.811 Encounter for preprocedural respiratory examination; Z01.818 Encounter for other preprocedural examination
CPT/HCPCS: 36415; 71046; 73700; 80048; 82040; 83036; 85025

== ENCOUNTER → 2022-08-20 | Outpatient (CLI) | payer MEDICARE, SELFPAY ==
--- NOTE | 2022-08-20 15:32 | BI_ITS ---
MAMMOGRAPHY - BILATERAL SCREENING REASON FOR EXAM: Female, 81 years old. Routine annual screening examination. PERTINENT HISTORY: Non-contributory. Remote right excisional breast biopsy. TECHNIQUE: Digital bilateral breast sapna (3D mammographic acquisition) in the CC and MLO projections. 2-D mediolateral oblique (MLO) and craniocaudad (CC) views of both breasts were obtained. CAD: Full Field Digital Mammography with Computer Added Detection was performed. COMPARISON: Comparison is made with prior study dated 08/17/2021 and 08/14/2020. FINDINGS: Breast Composition: There are scattered areas of fibroglandular density. There are no dominant masses or suspicious calcifications. Stable 4 mm well-defined nodule in the upper lateral aspect of the left breast No other significant abnormalities are identified. There has been no significant change since the prior study. BI/SCRN MAMM (CAD)W/SAPNA BILAT IMPRESSION: Stable bilateral screening mammogram. Yearly follow-up mammogram recommended. (A) ASSESSMENT CATEGORY: BIRADS Category 2: Benign. A letter regarding these results will be sent to the patient by the facility within 30 days. Approximately 10% of breast cancers are not detected by mammography. A normal mammogram should not delay biopsy of a clinically suspicious abnormality. [id number] Electronically Signed: Félix Ballesteros MD at 8:16 EDT ,
== END | disposition home or self-care (01) ==
LOC: OPBI 15:31
PROVIDERS: PCP Internal Medicine; Visit Provider Internal Medicine
DX: Z12.31 Encounter for screening mammogram for malignant neoplasm of breast (principal); Z92.89 Personal history of other medical treatment
CPT/HCPCS: 77063; 77067

== ENCOUNTER 2022-11-04 10:30 | Outpatient (RCR) | payer MEDICARE, SELFPAY ==
--- NOTE | 2022-10-08 12:54 | HP.PTEVAL_ITS ---
Patient's Visit Information LINDEN LANDRY is a 81 year old F referred to Physical Therapy by Dr. Silva Peterson MD with a diagnosis of Low Back Pain. Date of Evaluation: 10/08/22 Physical Therapist: Lois Ibarra DPT - Visit Plan Frequency: 2x /Week Duration: 4 Weeks Plan: Focus on LE and core strength/stabilization- gym program for her knee at [facility]. HEP Given IE: TA contraction, bridge, clams - Subjective Patient reports that she has had low back problems since she was 12- she has been seeing a chiro since then. 2-3 months ago she went to [place] but her back was horrible on the way home and she had to stop- she was able to get home and tc forgot about it. She went to the chiro which did not help- she had acupuncture which took the leg pain away but she still has left sided back pain. The chiropractor isn't working. She went to see the MD and they took x-rays and she has severe OA in her hips. Findings: Lumbar: Grade 2 listhesis of L4 and L5 disc degeneration and facet. arthropathy. Facet arthropathy noted at L4-5 and L5-S1. Hips: narrowing of both hip joints noted worse on the left and. right. The pain comes and goes. Currently: no pain Best: 0/10 Eases: ice, laying down. Agg: any lifting Worst: 10/10. She carried in groceries and was sore for 2 days- carried one in each hand. Pain is located in the a little below the belt line but she can't push on it to reproduce it- when its bad it r adiates across- no pain radiating down her left leg for about a month. Describes the pain as continuous pain. Sleep: not disturbed- takes CBD gummies to help her sleep. Dr. Ferreira in [place] does chiro and acupuncture-she still goes her for adjustments at least 1x a month. She is more sedentary at this point due to being cold- she was going to [facility]- weight machines for her TKR this year. She does some core strength- but she was so sore after doing them she stopped. No loss or change in bowel/bladder- no N/T. PMHX/Meds: no changes in PMHx/Meds since she saw MD last year Oct. - Objective Posture: fair in sitting and standing- FH -RS- decreased lordosis of the lumbar spine. HR/TR: able without pain- does use UE A. Balance: weight shift but does not SLS. Gait: slight lean to the left. Sensation: WFL to gross touch bilateral LE. ROM: Lumbar: no limitation noted but does report pain with left SB. Hip/Ankle/Knee: WFL. Strength: Core: fair minus Hip: Flexion: 4/5, Abd/Add: 4+/5, Extn: 4/5, IR/ER:4-/5, Knee: 5/5 Ankle: 5/5. Flex: HS: moderate Gastroc: moderate. Palpation: tender along gluts on the left and into the lumbar parapsinals. Special Test: no change in s/s with directional movement - Special Tests L/S Slump test left side: Negative L/S Slump test right side: Negative L/S Left Straight Leg Raise: Negative L/S Right Straight Leg Raise: Negative L Hip KENNA - Intraarticular Pathology: Negative L Hip FADDIR - Labrum: Negative L Hip Trendelenberg - Glut Medius: Negative - Goals Goal 1:: Patient will be I with HEP and progression Goal Time Frame: 4-6 Weeks Goal 2:: Patient will maintain proper posture t/o tx session to demo increased core s/s Goal Time Frame: 4-6 Weeks Goal 3:: Patient will report 80% improvement Goal Time Frame: 4-6 Weeks - Rehabilitation Potential Physical Therapy Diagnosis: Patient presents with hypomobility- he has decrease LE and core strength/stabilization, flex and muscular endurance leading to poor posture and increased pain with ADL's. Rehabilitation Potential: Good - Anticipated Interventions Patient/Client Instruction: Educate patient on: Benefits of Fitness Program Therapeutic Exercise to Include: Strength training, Endurance training, Balance training, Coordination, Agility training, Body mechanics, Postural training, Flexibilty training, Gait and locomotor training, Neuromotor development, Dynamic Lumbar Stabilization, Scapular Strength/Stabilization For the Purpose of:: To improve muscle performance and motor function Thank you for the opportunity to evaluate your patient. For Medicare and Medicare HMO plans, please review the plan of care and approve it. It will need to be FAXED BACK to us at [phone] for Medicare purposes. For Medicare only, by signing this I certify the plan of care. Please let me know if there are questions or concerns regarding this plan of care. Physician Signature: Date:
--- NOTE | 2022-11-04 11:48 | HP.PTDCSUM_ITS ---
It has been my pleasure to treat LINDEN LANDRY referred by Dr. Silva Peterson MD, with the diagnosis of Low Back Pain for a total of 8 visit(s). Discharge Date: Please see the following information for a summary of their discharge status. Subjective: Patient reports that she feels a little better. She does have some back pain still- she goes in tomorrow for an adjustment and acupuncture. She does feel that the pain is better- she is taking less pain medication overall. She feels that she can continue the exercises at home. She is back to [facility]. Low Back Pain Intensity (Out of 10): 0 % Improvement: 80 Objective/Function: Posture: fair in sitting and standing- FH -RS- decreased lordosis of the lumbar spine. HR/TR: able without pain- does use UE A. Balance: weight shift but does not SLS. Gait: no dev noted. Sensation: WFL to gross touch bilateral LE. ROM: Lumbar: no limitation noted no pain Hip/Ankle/Knee: WFL. Strength: Core: fair minus Hip: Flexion: 4+/5, Abd/Add: 4+/5, Extn: 4+/5, IR/ER:4/5, Knee: 5/5 Ankle: 5/5. Flex: HS: moderate Gastroc: moderate. Special Test: no change in s/s with directional movement. - Special Tests. L/S Slump test left side: Negative. L/S Slump test right side: Negative. L/S Left Straight Leg Raise: Negative. L/S Right Straight Leg Raise: Negative Goal 1:: Patient will be I with HEP and progression Goal Progress: Goal Met Goal 2:: Patient will maintain proper posture t/o tx session to demo increased core s/s Goal Progress: Progressing Goal 3:: Patient will report 80% improvement Goal Progress: Goal Met Plan: 11/04/21: Discharge to I HEP at gym. 10/15/22: Removed bridge from HEP. Focus on LE and core strength/stabilization- gym program for her knee at [place]. HEP Given IE: TA contraction, bridge, clams If there are questions or concerns regarding this patient's physical therapy, please feel free to call me at [phone]. Thank you for the referral of this patient. Sincerely, Lois Ibarra, DPT Balance/Gait/Functional tests - Balance/Special Test Scores Oswestry Low Back Score: 7
== END 2022-11-04 19:00 | disposition home or self-care (01) ==
LOC: PT 10:30
PROVIDERS: PCP Internal Medicine; Referring Provider Internal Medicine; Visit Provider Internal Medicine
DX: M54.9 Dorsalgia, unspecified (principal)
CPT/HCPCS: 97035; 97110; 97162; 97164

== ENCOUNTER → 2022-11-06 | Outpatient (CLI) | payer MEDICARE, SELFPAY ==
--- NOTE | 2022-11-06 15:09 | US_ITS ---
STUDY: ULTRASOUND OF THE FEMALE PELVIS - COMPLETE REASON FOR EXAM: Female, 81 years old. Ovarian cyst. LMP: TECHNIQUE: TECHNICAL QUALITY: Adequate. COMPARISON: CT the abdomen and pelvis, May 24, 2019. FINDINGS: The uterus is surgically absent. The right ovary is visualized. The right ovary measures 3.2 x 1.9 x 2.2 cm. There is a 2.6 x 1.6 x 1.7 cm simple ovarian cyst. There is no visualized right adnexal mass or complex lesion. There is normal arterial and normal venous vascularity. The left ovary is not visualized. There is no visualized left adnexal mass or complex lesion. There is minimal fluid in the cul-de-sac. The pre void volume of the bladder was 214 ml. The urinary bladder appears grossly normal. Polycystic ovary disease: No. US/Pelvic (Non ) IMPRESSION: 1. Small right ovarian cyst. This appears similar to that noted on the CT scan of 2019. 2. Surgical absence of the uterus. The left ovary is not visualized. 3. Small amount of free fluid in the pelvis of unknown etiology. 4. Normal urinary bladder. Electronically Signed: Marcelino Coffman DO at 18:56 EST ,
== END | disposition home or self-care (01) ==
LOC: US 15:08
PROVIDERS: PCP Internal Medicine; Referring Provider Internal Medicine; Visit Provider Internal Medicine
DX: R10.32 Left lower quadrant pain (principal)
CPT/HCPCS: 76856

== ENCOUNTER → 2022-12-12 | Outpatient (CLI) | payer MEDICARE, SELFPAY ==
--- NOTE | 2022-12-12 10:22 | MRI_ITS ---
PROCEDURE: MRI LUMBAR SPINE WITHOUT CONTRAST REASON FOR EXAM: Female, 82 years old. Low back pain TECHNIQUE: Standardized fat and water weighted pulse sequences were obtained in the sagittal and axial planes. COMPARISON: X-ray of the lumbar spine dated September 02, 2022 FINDINGS: Normal lumbar lordosis. There is no substantial scoliosis. Normal conus medullaris that terminates at the T12-L1 level. No fracture or marrow edema or compression deformity seen. T12-L1: Diffuse disc desiccation with mild disc space narrowing and minimal annular bulging. Mild endplate spurring and Schmorl''s nodes. Slight retrolisthesis. Normal bilateral facet joints. Normal central canal and bilateral lateral recesses. Normal bilateral intervertebral neural foramina. L1-2: Normal endplates. Diffuse disc desiccation with minimal posterior disc space narrowing. Shallow left foraminal disc protrusion. Mild to moderate left foraminal stenosis with nerve root impingement. Normal right neural foramen. Mild facet joint hypertrophy. Slight retrolisthesis of less than 2 mm. L2-3: Normal endplates. Normal disc height and morphology. Normal bilateral facet joints. Normal central canal and bilateral lateral recesses. Normal bilateral intervertebral neural foramina. L3-4: Normal endplates. Diffuse disc desiccation with mild posterior disc space narrowing at minimal annular bulging. Normal central canal and bilateral lateral recesses. Normal bilateral intervertebral neural foramina. L4-5: Anterolisthesis of L4 and L5 of 7.6 mm. No pars interarticularis defects are seen. Moderate disc space narrowing with annular bulging. Moderate central canal stenosis is present primarily due to moderate facet joint and ligamenta flava hypertrophy. Mild bilateral foraminal stenosis with nerve root impingement. L5-S1: Normal endplates. Diffuse disc desiccation with mild posterior disc space narrowing and annular bulging. Mild to moderate facet joint hypertrophy. Normal central canal and bilateral lateral recesses. Normal bilateral intervertebral neural foramina. Normal visualized sacral ala. There is mild paraspinal muscular atrophy. MRI/Spine Lumbar (Routine) IMPRESSION: 1. Multilevel degenerative changes, as described above. 2. Multilevel foraminal stenosis. 3. Nerve root impingement associated with foraminal stenosis at L1-L2 and L4-L5. Electronically Signed: Seun Mojica MD at 15:15 EST ,
== END | disposition home or self-care (01) ==
PROVIDERS: PCP Internal Medicine; Referring Provider Internal Medicine; Visit Provider Internal Medicine
DX: M51.36 Other intervertebral disc degeneration, lumbar region (principal)
CPT/HCPCS: 72148

== ENCOUNTER → 2023-08-21 | Outpatient (CLI) | payer MEDICARE, SELFPAY ==
--- NOTE | 2023-08-21 10:52 | BI_ITS ---
MAMMOGRAPHY - BILATERAL SCREENING REASON FOR EXAM: Female, 82 years old. Routine annual screening examination. PERTINENT HISTORY: Non-contributory. Prior right excisional breast biopsy. TECHNIQUE: Digital bilateral breast sapna (3D mammographic acquisition) in the CC and MLO projections. 2-D mediolateral oblique (MLO) and craniocaudad (CC) views of both breasts were obtained. CAD: Full Field Digital Mammography with Computer Added Detection was performed. COMPARISON: Comparison is made with prior study August 20, 2022 and August 17, 2021. FINDINGS: Breast Composition: There are scattered areas of fibroglandular density. There are no dominant masses or suspicious calcifications. Stable 4 mm well-defined nodule in the upper lateral aspect of the left breast. No other significant abnormalities are identified. There has been no significant change since the prior study. BI/SCRN MAMM (CAD)W/SAPNA BILAT IMPRESSION: Stable bilateral screening mammogram. Yearly follow-up mammogram recommended. (A) ASSESSMENT CATEGORY: BIRADS Category 2: Benign. A letter regarding these results will be sent to the patient by the facility within 30 days. Approximately 10% of breast cancers are not detected by mammography. A normal mammogram should not delay biopsy of a clinically suspicious abnormality. [id number] Electronically Signed: Félix Ballesteros MD at 12:09 EDT ,
== END | disposition home or self-care (01) ==
LOC: OPBI 10:51
PROVIDERS: PCP Internal Medicine; Referring Provider Internal Medicine; Visit Provider Internal Medicine
DX: Z12.31 Encounter for screening mammogram for malignant neoplasm of breast (principal)
CPT/HCPCS: 77063; 77067

== ENCOUNTER → 2024-06-01 | Outpatient (CLI) | payer MEDICARE, SELFPAY ==
--- NOTE | 2024-06-01 13:38 | BD_ITS ---
STUDY: DUAL ENERGY X-RAY ABSORPTIOMETRY / DXA REASON FOR EXAM: Female, 83 years old. M810 TECHNIQUE: Bone Mineral Density (BMD) measurements of lumbar spine and bilateral hips were obtained. COMPARISON: Comparison is made with prior study February 07, 2022. FINDINGS: Lumbar Spine (L1-L4): g/cm2 (0.824) / T-score (-2.1) / Z-score (0.7) Findings are suggestive of osteopenia with a high fracture risk. Left Femur Total: g/cm2 (0.656) / T-score (-2.3) / Z-score (-0.1) Left Femoral Neck: g/cm2 (0.601) / T-score (-2.2) / Z-score (0.2) Right Femur Total: g/cm2 (0.638) / T-score (-2.5) / Z-score (-0.2) Right Femoral Neck: g/cm2 (0.567) / T-score (-2.5) / Z-score (-0.1) The T-Scores on the most recent prior examination were: Lumbar Spine (L1-L4): There has been improvement of bone density since the previous examination. Left Femur Total: which represents an improvement of 2.7%. Right Femur Total: which represents an improvement of 9.7%. BD/Dexa Bone Density Study IMPRESSION: The patient is considered osteoporotic as outlined below according to World Ethan Organization (WHO) criteria with a high fracture risk. There has been improvement of bone density since the previous examination. Reference Information: The T-score is the number of standard deviations above or below the standard which is normal for young adults at their peak bone mineral density. The World Health Organization (WHO) interprets the T-scores as follows: Above -1 Normal bone density Between -1 and -2.5 Osteopenia Equal to / or below -2.5 Osteoporosis As a practical clinical guideline, osteopenia may be graded as follows: Mild -1 through -1.5 Moderate -1.6 through -2.0 Severe -2.1 through -2.4 The Z-score is the number of standard deviations above or below age-matched controls. A Z-score of less than -1.5 would be considered abnormal. References: 1. NIH Osteoporosis and Related Bone Diseases www osteo.org 2. International Society for Clinical Densitometry www iscd.org 3. National Osteoporosis Foundation www nof.org Electronically Signed: Félix Ballesteros MD at 13:49 EDT ,
== END | disposition home or self-care (01) ==
LOC: OPBD 13:33
PROVIDERS: PCP Internal Medicine; Referring Provider Internal Medicine; Visit Provider Internal Medicine
DX: M81.0 Age-related osteoporosis without current pathological fracture (principal)
CPT/HCPCS: 77080

== ENCOUNTER 2024-07-08 11:30 | Outpatient (RCR) | payer MEDICARE, SELFPAY ==
--- NOTE | 2024-06-15 12:43 | HP.PTEVAL_ITS ---
Patient's Visit Information Visit Information Visit Information: LINDEN LANDRY is a 83 year old F referred to Physical Therapy by Dr. Silva Peterson MD with a diagnosis of Poor balance. Date of Evaluation: 06/15/24 Physical Therapist: Robin Sánchez, DPT, OCS, CSCS Visit Plan Frequency: 2x /Week Duration: 4-6 Weeks Plan: 2x/week for 4-6... Teach forward weight shifting and vestibular balance(head movement, foam, ec) and work to I with pics. Please teach general gym based strength adn progress to I as member(core, LE adn postural) Subjective Subjective: Feels unsteady more adn more so. no falls recently. No spinning. Head feels full from allergies. Feet are not completly numb but kind of feels weird numby when wiggling toes. Has bone spurs under feet, no pain. feels like walking on rocks if barefoot though. R ankle hurts at times from old age, degeneration. H/O R TKA. silver sneakers class 1-2x/week when able. Does a lot of sitting exdercises, stands up at times, could not do the balance exercises. Does some of the balance ex sitting. Sleep is not great at times for no apparent reason. Not employed. Uses cane out adnd about and sometimes at home in the lawn.Spends day dong very little. Plays games and cleans house Objective Objective: core strength is at deficit with leg testing with IR at opposite hip and needing to stabilize with UE. LB AROM mod limtiations each direction, no pain. Hip and knee AROM WFL without pain. Ankles symmetrical adn WFL, reflexes 1/3 patella adn achilles Sensation LE WNL to gross light touch, avoids some forefoot WB and pushoff in gait which is I, transfers chair I without UE, steps reciprocal with one rail obvious descending ecc weakness. - slump and - SLR. Flexibility is good with -25 90/90 HS test. Balance/Special Test Scores Functional Gait Assessment Score: 24 % Disability: 20.0000 CATSIB Score (Max score 120 seconds): 98 Lower Extremity Functional Score: 39 Goals Goal 1:: FGA Goal Time Frame: 4-6 Weeks Goal 2:: 110 romberg to diminish fall risk Goal Time Frame: 4-6 Weeks Goal 3:: I appropriate gneraeral gym strength, wt shifting FW and vestibular balance ex Goal Time Frame: 4-6 Weeks Goal 4:: LEFS 45 Goal Time Frame: 4-6 Weeks Goal 5:: Pt feel 505 steadier in overall subjective movement Goal Time Frame: 4-6 Weeks Rehabilitation Potential Physical Therapy Diagnosis: Likely vrestibular weakness and poor weight shifting and general sedentarism leading to unsteady feelings. Rehabilitation Potential: Fair Anticipated Interventions Patient/Client Instruction: Educate patient on: Condition and Plan of Care For the Purpose of:: To improve muscle performance and motor function, To increase tolerance to activity/condition/position, To improve ability of physical actions for home/community/work/leisure, To improve gait and locomotor functions and To improve safety Therapeutic Exercise to Include: Strength training, Balance training and Postura l training For the Purpose of:: To improve muscle performance and motor function, To increase tolerance to activity/condition/position, To improve gait and locomotor functions and To improve safety Text: Thank you for the opportunity to evaluate your patient. For Medicare and Medicare HMO plans, please review the plan of care and approve it. It will need to be FAXED BACK to us at [phone] for Medicare purposes. For Medicare only, by signing this I certify the plan of care. Please let me know if there are questions or concerns regarding this plan of care. Physician Signature: Date:
--- NOTE | 2024-09-02 10:31 | HP.PT.NRP ---
Patient Information Patient Information: LINDEN LANDRY was seen in my office for initial evaluation on 06/15/24. The following Plan of Care was established for this patient: POC Established Initial Frequency: 2x /Week Initial Duration: 4-6 Weeks Anticipated Interventions Patient/Client Instruction: Educate patient on: Condition and Plan of Care For the Purpose of:: To improve muscle performance and motor function, To increase tolerance to activity/condition/position, To improve ability of physical actions for home/community/work/leisure, To improve gait and locomotor functions and To improve safety Therapeutic Exercise to Include: Strength training, Balance training and Postural training For the Purpose of:: To improve muscle performance and motor function, To increase tolerance to activity/condition/position, To improve gait and locomotor functions and To improve safety Last Seen Last Seen: This patient was last seen in our office 07/08/24. Pertinent comments regarding their Physical therapy will appear below: Pt seen for 7 visits of POC but did not attend any further visits. At this point, it has been over 6 weeks and I will discontinue from my care. At this point I will be discontinuing this patient from physical therapy. I would be happy to see this patient again in the future if found appropriate by the physician. Thank you! Robin Sánchez, DPT, OCS, CSCS Balance/Gait/Functional tests Balance/Special Test Scores Functional Gait Assessment Score: 24 % Disability: 20.0000 CATSIB Score (Max score 120 seconds): 98 Lower Extremity Functional Score: 39
== END 2024-07-08 19:00 | disposition home or self-care (01) ==
LOC: PT 11:30
PROVIDERS: PCP Internal Medicine; Referring Provider Internal Medicine; Visit Provider Internal Medicine
DX: R26.89 Other abnormalities of gait and mobility (principal)
CPT/HCPCS: 97110; 97161

== ENCOUNTER → 2024-08-23 | Outpatient (CLI) | payer MEDICARE, SELFPAY ==
--- NOTE | 2024-08-23 15:00 | BI_ITS ---
MAMMOGRAPHY - BILATERAL SCREENING REASON FOR EXAM: Female, 83 years old. Routine annual screening examination. PERTINENT HISTORY: Non-contributory. Remote right excisional breast biopsy. TECHNIQUE: Digital bilateral breast sapna (3D mammographic acquisition) in the CC and MLO projections. 2-D mediolateral oblique (MLO) and craniocaudad (CC) views of both breasts were obtained. CAD: Full Field Digital Mammography with Computer Added Detection was performed. COMPARISON: Comparison is made with prior study August 21, 2023 and August 20, 2002. FINDINGS: Breast Composition: There are scattered areas of fibroglandular density. There are no dominant masses or suspicious calcifications. Stable 4 mm well-defined nodule in the upper outer aspect of the left breast suggestive of a small lymph node. Stable left axillary lymph node. No other significant abnormalities are identified. There has been no significant change since the prior study. BI/SCRN MAMM (CAD)W/SAPNA BILAT IMPRESSION: Stable bilateral screening mammogram. Yearly follow-up mammogram recommended. (A) ASSESSMENT CATEGORY: BIRADS Category 2: Benign. A letter regarding these results will be sent to the patient by the facility within 30 days. Approximately 10% of breast cancers are not detected by mammography. A normal mammogram should not delay biopsy of a clinically suspicious abnormality. [id number] Electronically Signed: Félix Ballesteros MD at 15:30 EDT ,
== END | disposition home or self-care (01) ==
LOC: OPBI 14:57
PROVIDERS: PCP Internal Medicine; Referring Provider Internal Medicine; Visit Provider Internal Medicine
DX: Z12.31 Encounter for screening mammogram for malignant neoplasm of breast (principal)
CPT/HCPCS: 77063; 77067

== ENCOUNTER 2024-11-23 11:30 | Outpatient (RCR) | payer MEDICARE, SELFPAY ==
--- NOTE | 2024-09-17 15:15 | HP.PTEVAL ---
Patient's Visit Information Visit Information Visit Information: LINDEN LANDRY is a 83 year old F referred to Physical Therapy by Dr. Lupe Leiva MD with a diagnosis of MIXED URINARY INCONTINENCE. Date of Evaluation: 09/17/24 Physical Therapist: Randi Phelps PT, Cert MDT Visit Plan Frequency: 1x/Week Duration: 2-4 Months Plan: PF THERAPY FOR STRENGTHENING, LENGTHENING/RELAXATION AND ENDURANCE TRAINING. URINARY URGE AND FREQUENCY EDUCATION. HEALTHY BLADDER HABIT EDUCATION. TRAINING IN COORDINATION OF PELVIC FLOOR MUSCULATURE WITH HIP AND CORE (TRANSVERSE ABDOMINUS) MUSCULATURE. CORE STRENGTHENING. SOLEDAD LE ROM, STRETCHING AND STRENGTHENING. TRAINING IN ABDOMINAL CAVITY PRESSURE MGMT WITH ADL'S. HEALTHY BACK HABITS. POSTURE TRAINING. Subjective Subjective: Work/Leisure: RETIRED Present symptoms: URINE LEAKAGE DAILY THAT WETS UNDERWEAR Present since: SEVERAL YEARS Is it getting better, worse or staying the same: GETTING BETTER Commenced as a result of: NO APPARENT REASON Symptoms at onset: UNCONTROLLABLE URINE LEAKAGE Worse: SNEEZING, COLD WEATHER, WAITING TOO LONG TO VOID Better: IRON REGULATION, KEGEL EX'S Previous history/Previous treatment: 2 BLADDER REPAIRS, TUBAL LIGATION Treatment this episode: IRON MEDICATION AND KEGEL EX'S. Gait: INDEP GAIT. DID FALL LAST WEEK. STATES SHE WAS CARRYING TOO MUCH GOING UP THE STEPS COMING INTO THE HOUSE, WASN'T PAYING ATTENTION AND CAUGHT HER FOOT ON THE DOOR JAM AND FELL. OTHER THAN THAT STATES SHE HASN'T FALLEN IN A COUPLE YEARS. How long can you delay the need to urinate: ZERO TO 1 TO 2 MINUTES Prolapse (Falling out feeling): NO Frequency of Urination: ABOUT EVERY 3 HOURS DURING THE DAY. 1-2 TIMES AT NIGHT. Ability to stop urine flow: YES Ability to initiate urine stream: YES - NEVER HAVE DIFFICULTY Dyspareunia: NO. N/A. Bowel Incontinence: NO Unexplained weight loss: NO Imaging: NO PMH/Recent major surgery: ARTHRITIS. B TKR'S. 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 FLARED UP BACK WITH FALL. OTHER: PATIENT STATES I KNOW HOW TO DO THE KEGEL EX'S AND I ALMOST CANCELLED BECAUSE I'M GETTING BETTER BUT I DECIDED TO COME IN AND SEE IF I COULD LEARN ANYTHING ELSE TO HELP. Objective Objective: Sitting/Standing Posture: INCREASED LORDOSIS. NO RELEVANT LATERAL SHIFT. SLOUCHED IN SITTING. ABLE TO PARTIALLY CORRECT WITHOUT C/O INCREASED PAIN. DOES NOT MAINTAIN. Other Observations: INDEP GAIT AND TRANSFERS. NO LOB. PATIENT IS PLEASANT AND COOPERATIVE TO WORK WITH. Sensory deficit: SOLEDAD LE LIGHT TOUCH SENSATION GROSSLY INTACT AND SYMMETRICAL. ROM deficit: SOLEDAD HIP ROTATOR TIGHTNESS - YARA L HIP IR. SOLEDAD HS AND CALF TIGHTNESS. Motor deficit: R HIP 4/5, L HIP 4-/5. SOLEDAD KNEES 4-/5. SOLEDAD ANKLE 4/5. PATIENT COMMUNICATES A GOOD UNDERSTANDING OF HOW TO CONTRACT HER PELVIC FLOOR WITH CUEING. Dural Signs: NEGATIVE SOLEDAD LE'S. Lumbar mvmt loss: flex - NIL ext - MOD R SG - MOD L SG - MOD PATIENT DENIES PAIN WITH LUMBAR ROM TESTING. PATIENT REPORTS BACK PAIN IF SHE SLEEPS ON HER BACK. ALSO REPORTS BACK PAIN AFTER CARRYING GROCERIES. Core strength: POOR Palpation: NO ACUTE BACK OR HIP TENDERNESS. FUNCTIONAL SCREEN: Incontinence Impact Questionnaire Score: 1 Urogenital Distress Inventory Score: 6 Goals Goal 1:: DECREASE URINARY LEAKAGE EPISODES TO ONE OR LESS PER WEEK. Goal Time Frame: 8-12 Weeks Goal 2:: PATIENT WILL SUCCESSFULLY DELAY VOIDING LONG NEEDED WHEN URGENCY OCCURS TO SUCCESSFULLY MAKE IT TO THE BATHROOM. Goal Time Frame: 6-8 Weeks Goal 3:: PATIENT WILL DEMONSTRATE/COMMUNICATE 10 CONSISTENT AND CONSECUTIVE 10 SECOND PELVIC FLOOR MUSCLE CONTRACTIONS TO DEMONSTRATE IMPROVED PELVIC FLOOR ENDURANCE. Goal Time Frame: 8-12 Weeks Goal 4:: DEVELOP HEALTHY FLUID INTAKE HABITS WITH FLUID INTAKE OF ? BODY WEIGHT IN OUNCES PER DAY AND 2/3 BEING WATER. Goal Time Frame: 4-6 Weeks Goal 5:: NORMALIZE VOIDING FREQUENCEY TO EVERY 3-4 HOURS. Goal Time Frame: 8-12 Weeks Goal 6:: PATIENT WILL BE INDEP WITH A [facility]/HOME INSTRUCTIONS FOR CONTINUED IMPROVEMENT ONCE FORMAL PHYSICAL THERAPY CONCLUDES. Goal Time Frame: 8-12 Weeks Rehabilitation Potential Physical Therapy Diagnosis: CORE, HIP AND PELVIC FLOOR WEAKNESS. Rehabilitation Potential: Good Anticipated Interventions Patient/Client Instruction: Educate patient on: Condition, Plan of Care and Risk Factors For the Purpose of:: To improve self management Therapeutic Exercise to Include: Strength training, Endurance training, Body mechanics, Postural training, Flexibilty training, Neuromotor development and Relaxation training For the Purpose of:: To improve muscle performance and motor function and To improve ability of physical actions for home/community/work/leisure Text: Thank you for the opportunity to evaluate your patient. For Medicare and Medicare HMO plans, please review the plan of care and approve it. It will need to be FAXED BACK to us at [phone] for Medicare purposes. For Medicare only, by signing this I certify the plan of care. Please let me know if there are questions or concerns regarding this plan of care. Physician Signature: Date:
--- NOTE | 2024-11-23 12:14 | HP.PTDCSUM ---
Discharge Summary D/C summary: It has been my pleasure to treat LINDEN LANDRY referred by Dr. Lupe Leiva MD, with the diagnosis of MIXED URINARY INCONTINENCE for a total of 5 visit(s). Discharge Date: 11/23/24 Please see the following information for a summary of their discharge status. Subjective Subjective: PATIENT REPORTS SHE IS DOING REALLY GOOD. SHE STATES I'M IMPRESSED. I REALLY DIDN'T THINK THIS WOULD DO ME ANY GOOD BUT I'M HAPPY. Overall Improvement % Improvement: 100 Objective Objective/Function: PATIENT WAS SEEN TODAY FOR RE-ASSESSMENT OF PROGRESS TOWARD THE SET PT GOALS AND THE NEED FOR FURTHER PHYSICAL THERAPY VS READINESS FOR DISCHARGE. ALL PT GOALS HAVE BEEN MET AND PATIENT IS APPROPRIATE FOR AND AGREEABLE TO DISCHARGE. FUNCTIONAL SCREEN: Incontinence Impact Questionnaire Score: 0 (SCORE AT EVAL = 1) Urogenital Distress Inventory Score: 1 (SCORE AT EVAL = 6). Goals Goal 1:: DECREASE URINARY LEAKAGE EPISODES TO ONE OR LESS PER WEEK. Goal Progress: Goal Met Goal 2:: PATIENT WILL SUCCESSFULLY DELAY VOIDING LONG NEEDED WHEN URGENCY OCCURS TO SUCCESSFULLY MAKE IT TO THE BATHROOM. Goal Progress: Goal Met Goal 3:: PATIENT WILL DEMONSTRATE/COMMUNICATE 10 CONSISTENT AND CONSECUTIVE 10 SECOND PELVIC FLOOR MUSCLE CONTRACTIONS TO DEMONSTRATE IMPROVED PELVIC FLOOR ENDURANCE. Goal Progress: Goal Met Goal 4:: DEVELOP HEALTHY FLUID INTAKE HABITS WITH FLUID INTAKE OF ? BODY WEIGHT IN OUNCES PER DAY AND 2/3 BEING WATER. Goal Progress: Goal Met Goal 5:: NORMALIZE VOIDING FREQUENCEY TO EVERY 3-4 HOURS. Goal Progress: Goal Met Goal 6:: PATIENT WILL BE INDEP WITH A HEP/HOME INSTRUCTIONS FOR CONTINUED IMPROVEMENT ONCE FORMAL PHYSICAL THERAPY CONCLUDES. Goal Progress: Goal Met Plan Plan: D/C D/C Information d/c sentence: If there are questions or concerns regarding this patient's physical therapy, please feel free to call me at [phone]. Thank you for the referral of this patient. Sincerely, Randi Phelps, PT, Cert MDT Balance/Gait/Functional tests Improvement % Improvement: 100
== END 2024-11-23 19:00 | disposition home or self-care (01) ==
LOC: PT 11:30
PROVIDERS: PCP Internal Medicine; Referring Provider Urology; Visit Provider Urology
DX: N39.46 Mixed incontinence (principal)
CPT/HCPCS: 97162; 97530

== ENCOUNTER → 2025-05-17 | Outpatient (CLI) | payer MEDICARE, SELFPAY ==
[2025-05-17 16:59] LABS: Ferritin 33 ng/mL (22-378); Vitamin B12 520 pg/mL (180-914)
[2025-05-17 17:03] LABS: CRP < 3.00 mg/L (0.0-3.0)
[2025-05-19 13:08] LABS: ANTINUCLEAR ANTIBODIES DIRECT Negative (Negative)
[2025-05-24 01:07] LABS: Angiotensin Convert Enzyme 42 U/L (14-82)
== END | disposition home or self-care (01) ==
LOC: MTLAB 12:47
PROVIDERS: PCP Internal Medicine; Referring Provider Internal Medicine; Visit Provider Internal Medicine
DX: D50.9 Iron deficiency anemia, unspecified (principal); R79.82 Elevated C-reactive protein (CRP); M25.50 Pain in unspecified joint; E53.8 Deficiency of other specified B group vitamins
CPT/HCPCS: 36415; 82164; 82607; 82728; 85652; 86038; 86140; 86200; 86431; 86617

== ENCOUNTER 2025-08-19 11:37 | Outpatient (RCR) | payer MEDICARE, SELFPAY ==
--- NOTE | 2025-08-19 12:42 | HP.PTEVAL ---
Patient's Visit Information Visit Information Visit Information: LINDEN LANDRY is a 84 year old F referred to Physical Therapy by Dr. Silva Peterson MD with a diagnosis of BPPV. Date of Evaluation: 08/19/25 Physical Therapist: Robin Sánchez, DPT, OCS, CSCS Visit Plan Frequency: Every Other Week Duration: 6 Weeks Plan: f/u in two weeks unless symptome r\eturn prior check BPPV and neck stiffness next session and treat accordingly with positional if needed or neck strength. pt to call prior if symptoms return. No positional treamtnet necessary today but showed neck rot and ext ROM 10x 3x/day and scap circles 10x 3x/day for HEP Subjective Subjective: Rolling L in bed makes her dizzy, happened 2x in the last week. Dosn't usually li on L side. Duration is short. Standing is fine. Only happens rolling onto L. Hasn't noticed it any other time. Acticities normal at home. Balance is OK. no nuroapthy, maybe some in feet tingling. Sleep is OK, normal for her. Basic aDLs are fine. Hobbies: play games, no problem. Neck discomfort is normal for malaika, sees chiropractor. No regualr ex , used to work out at [employer] and will again. No falls and balance feels good. Hasnt had the dizzyness in a weeek despite rolling on L side. Objective Objective: Walks into PT I, trasnfrs bd and chair I, steps with railing recip and I. Cervical aROm 70 B rotation with stiffness but no pain, 55 ext, fair retraction. Symmetrical SB. UE AROM WFL, R arm + drop arm and hard to lift, Has RC problems. - B halpike patricia, - roll test today. Oculaomotor: no nystagmus with gaze or head shake - ocular tilt - skew eye deviation - head thrust. normal purusit and saccades today without symptoms. Normal VOR H and V without symptoms. MSQ positions without symptoms today. Balance/Special Test Scores Functional Gait Assessment Score: 25 % Disability: 16.6700 CATSIB Score (Max score 120 seconds): 98 Dizziness Score: 2 Goals Goal 1:: abolish dizzyness x 2 weeks with bed mobility Goal Time Frame: 4-6 Weeks Goal 2:: neck stiffness improved by 50% subjectively Goal Time Frame: 4-6 Weeks Rehabilitation Potential Physical Therapy Diagnosis: subjctive BPPV aand neck stiffness Limtiing comfortable funciton. Rehabilitation Potential: Good Anticipated Interventions Patient/Client Instruction: Educate patient on: Condition and Plan of Care For the Purpose of:: To increase ROM, To improve nutrient delivery to tissue and To improve muscle performance and motor function Therapeutic Exercise to Include: Strength training, Flexibilty training and Active ROM Comment: posoitional and neck rom stretch strength For the Purpose of:: To increase ROM, To improve nutrient delivery to tissue, To increase oxygenation perfusion, To improve muscle performance and motor function and To increase tolerance to activity/condition/position Text: Thank you for the opportunity to evaluate your patient. For Medicare and Medicare HMO plans, please review the plan of care and approve it. It will need to be FAXED BACK to us at [phone] for Medicare purposes. For Medicare only, by signing this I certify the plan of care. Please let me know if there are questions or concerns regarding this plan of care. Physician Signature: Date:
--- NOTE | 2025-10-13 15:07 | HP.PT.NRP ---
Patient Information Patient Information: LINDEN LANDRY was seen in my office for initial evaluation on 08/19/25. The following Plan of Care was established for this patient: POC Established Initial Frequency: Every Other Week Initial Duration: 6 Weeks Anticipated Interventions Patient/Client Instruction: Educate patient on: Condition and Plan of Care For the Purpose of:: To increase ROM, To improve nutrient delivery to tissue and To improve muscle performance and motor function Therapeutic Exercise to Include: Strength training, Flexibilty training and Active ROM For the Purpose of:: To increase ROM, To improve nutrient delivery to tissue, To increase oxygenation perfusion, To improve muscle performance and motor function and To increase tolerance to activity/condition/position Last Seen Last Seen: This patient was last seen in our office 08/19/25. Pertinent comments regarding their Physical therapy will appear below: Pt seen for IE adn POC established. Pt did not return for second check. At this point, it has fawn almost two months and I waill discontinue from my care. At this point I will be discontinuing this patient from physical therapy. I would be happy to see this patient again in the future if found appropriate by the physician. Thank you! Robin Sánchez, DPT, OCS, CSCS Balance/Gait/Functional tests Balance/Special Test Scores Functional Gait Assessment Score: 25 % Disability: 16.6700 CATSIB Score (Max score 120 seconds): 98 Dizziness Score: 2
== END 2025-08-19 19:00 | disposition home or self-care (01) ==
LOC: PT 11:37
PROVIDERS: PCP Internal Medicine; Referring Provider Internal Medicine; Visit Provider Internal Medicine
DX: H81.10 Benign paroxysmal vertigo, unspecified ear (principal); R26.89 Other abnormalities of gait and mobility; M50.30 Other cervical disc degeneration, unspecified cervical region
CPT/HCPCS: 97162

== ENCOUNTER → 2025-08-24 | Outpatient (CLI) | payer MEDICARE, SELFPAY ==
--- NOTE | 2025-08-24 11:00 | BI_ITS ---
EXAM: BI/SCRN MAMM (CAD)W/SAPNA BILAT
== END | disposition home or self-care (01) ==
LOC: OPBI 10:42
PROVIDERS: PCP Internal Medicine; Referring Provider Internal Medicine; Visit Provider Internal Medicine
DX: Z12.31 Encounter for screening mammogram for malignant neoplasm of breast (principal)
CPT/HCPCS: 77063; 77067